=== PATIENT | female | born 1960 | race Caucasian/White ===

== ENCOUNTER 2024-12-03 10:43 | Emergency (ER) | payer BC, SELFPAY ==
--- NOTE | ~2024-12-03 | CT_ITS ---
Exam: CT abdomen and pelvis with contrast Clinical History: [Lower abdominal pain. Diarrhea. ] Comparison: [ None] Technique: Multiple axial CT images of the abdomen and pelvis were obtained with IV contrast. Sagittal and coronal reformatted images were obtained. FINDINGS: Lung bases: [Calcified granuloma in the right middle lobe. ] Liver: [ Minimal intrahepatic biliary duct dilatation presumably due to a previous cholecystectomy.] Indeterminant 1.7 cm low-density mass in the posterior segment of the right lobe of the liver. Gallbladder: Surgically absent. Common bile duct: [ Normal caliber.] [ No stones.] Spleen: [ Within normal limits.] Calcified granulomas in the spleen. Pancreas: [ No mass. No pancreatic fluid collection.] Adrenals: [ No masses.] Kidneys: [ No masses. No hydronephrosis.][ ] Lymph nodes: [ No adenopathy in the abdomen or pelvis.] Stomach, small bowel and colon: Large bowel is primarily fluid-filled with air- fluid levels. Thickening of the riojas of the rectum. Peritoneum cavity: [ No mesenteric fat stranding or fluid.] Bladder: [ Unremarkable.] Osseous structures: [ No acute fracture or destructive lesion.] [ Multilevel degenerative change in the visualized spine.] Abdominal aorta: [ No aneurysm.] Additional findings: [ None of significance.] IMPRESSION: 1. Thickening of the riojas of the rectum. Differential includes incomplete bowel wall distention, proctitis or mass. 2. Large bowel is primarily fluid-filled with air-fluid levels. The finding is nonspecific but may be due to an ileus or developing obstruction. Follow-up is recommended. 3. Indeterminant 1.7 cm low-density mass in the posterior segment of the right lobe of the liver. A liver mass CT or MRI is recommended. Reviewed, dictated and finalized at location Q. IMPRESSION: 1. Thickening of the riojas of the rectum. Differential includes incomplete pedro luis l wall distention, proctitis or mass. 2. Large bowel is primarily fluid-filled with air-fluid levels. The finding is nonspecific but may be due to an ileus or developing obstruction. Follow-up is recommended. 3. Indeterminant 1.7 cm low-density mass in the posterior segment of the right lobe of the liver. A liver mass CT or MRI is recommended.
[2024-12-03 10:49] VITALS: BP 134/62; PULSE 96; RESP 16; TEMP 36.8; O2SAT 100
--- OUTSIDE RECORDS SUMMARY | 2024-12-03 11:27 | XMS_ITS | Clinical Summary ---
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 Role Phone Unavailable Primary Care Provider Unavailabl e Allergies Active Allergy Reactions Criticality Noted Date Comments Sulfa Hives Medium 04/13/2023 Medications desvenlafaxine ER (PRISTIQ) 100 mg 24 hr tablet Take 1 tablet (100 mg total) by mouth daily 3 Active desvenlafaxine ER 50 mg 24 hr tablet Take 1 tablet (50 mg total) by mouth daily 3 Active traZODone (DESYREL) 100 mg tablet Take 1 tablet (100 mg total) by mouth nightly as needed for sleep 3 Active clonazePAM (KlonoPIN) 0.5 mg tablet Take 1 tablet by mouth twice a day as needed severe anxiety....may make drowsy 3 Active atorvastatin (LIPITOR) 40 mg tablet Take 1 tablet (40 mg total) by mouth daily 90 tablet 3 4 Active lisinopriL (PRINIVIL,ZESTR IL) 5 mg tablet TAKE 1 TABLET(5 MG) BY MOUTH DAILY 90 tablet 1 4 Active montelukast (SINGULAIR) 10 mg tablet TAKE 1 TABLET(10 MG) BY MOUTH EVERY NIGHT 90 tablet 1 4 Active semaglutide (RYBELSUS) 3 mg tablet Take 1 tablet (3 mg total) by mouth otm consultant before breakfast 30 tablet 4 Active metFORMIN XR (GLUCOPHAGE XR) 750 mg 24 hr tablet Take 1 tablet (750 mg total) by mouth 2 (two) times a day 180 tablet 1 4 Active metFORMIN (GLUCOPHAGE) 500 mg tablet TAKE 1 TABLET(500 MG) BY MOUTH DAILY WITH BREAKFAST 100 tablet 5 Active albuterol HFA (PROVENTIL HFA,VENTOLIN HFA,PROAIR HFA) 90 mcg/actuation inhaler INHALE 2 PUFFS BY MOUTH EVERY 4 HOURS NEEDED FOR WHEEZING 25.5 g 5 Active levothyroxine (SYNTHROID) 25 mcg tablet TAKE 1 TABLET(25 MCG) BY MOUTH DAILY 100 tablet 5 Active cloNIDine (CATAPRES) 0.2 mg tablet TAKE 1 TABLET(0.2 MG) BY MOUTH TWICE DAILY 180 tablet 5 Active Active Problems Problem Noted Date Diagnosed Date Mild intermittent asthma without complication Seasonal allergic rhinitis due to pollen 024 Acquired hypothyroidism 02/20/2024 Assessment & Plan (02/20/2024 10:06 AM [employer]): Continue levothyroxine 25mcg. Euthyroid. F/u 6 months Annual physical exam 11/20/2023 Assessment & Plan (11/20/2023 10:28 AM CDT): -Recommended: Healthy diet. Avoiding junk food/fast food. -30 minutes of exercise most days of the week. Increase to 45 minutes for weight loss. Health Maintenance reviewed - does not wish to have colonoscopy. -Influenza vaccine every year Recommend: - Topic Date Due Pneumococcal vaccine <65 (1 of 2 - PCV) Never done DTaP/Tdap/Td Vaccine (1 - Tdap) Never done -F/u in 1 year for Annual PE or sooner if needed Mixed hyperlipidemia 04/13/2023 Assessment & Plan (02/20/2024 10:01 AM [employer]): Lipid abnormalities are stable. Pharmacotherapy as ordered. Continue atorvastatin Lipids will be reassessed in 6 months. Assessment & Plan (11/20/2023 10:29 AM CDT): Lipid abnormalities are stable, reviewed previous lipid levels in [facility]. Continue statin therapy. Lipitor (atorvastatin) Reviewed lipid panel today. Pt voiced understanding of current medication regimen. Assessment & Plan (04/13/2023 11:01 AM [employer]): Lipid abnormalities are stable, reviewed previous lipid levels in [facility]. Pharmacotherapy as ordered. Order for lipid panel was given today to be obtained. Pt voiced understanding of lab drawn and continuation of current medication regimen. Controlled type 2 diabetes elma bettencourt without complication, without long-term current use of insulin 04/13/2023 Assessment & Plan (02/20/2024 10:02 AM [employer]): Check A1c today. Will try PA for rybelsus. Continue metformin F/u 6 months Assessment & Plan (11/20/2023 10:32 AM CDT): Having some side effects from metformin especially with increased dose of 750 mg. A1c is 6 on the metformin. We are going to add Ozempic 0.25 mg weekly. I discussed starting dose and titrating dose .5 mg weekly. Sample given in office of the 0.25 mg with teach back method given with dummy pen. Discussed possible side effects. Will have her return in 3 months for recheck Assessment & Plan (04/13/2023 11:02 AM [employer]ING): This is a chronic condition which is stable Is at goal for her age and health condition at less than [7,8] % Personally reviewed most recent A1c - No results found for: HGBA1C Medication- continue metformin Monitor blood sugar 1 times a day. Encouraged annual eye exam. Urine microalbumin/creatinine ratio - ordered today Is treated with MARC/ARB Yes Personally reviewed CMP GFR- No results found for: EGFR, @lastegfr@ Kidney function- Not Available Labs ordered today Hypertension associated with diabetes 04/13/2023 Assessment & Plan (02/20/2024 10:02 AM [employer]): Stable/ Improved. Blood pressure is adequately controlled on lisinopril (Prinivil) and clonidine . We will not make any medication changes today. Will have her follow-up in 6 months for continued monitoring and management Assessment & Plan (11/20/2023 10:30 AM CDT): Stable/ Improved. Blood pressure is adequately controlled on lisinopril (Prinivil) and clonidine . We will not make any medication changes today. Will have her follow-up in 6 months for continued monitoring and management Assessment & Plan (04/13/2023 11:02 AM [employer]): Stable/ Improved. Blood pressure is adequately controlled on current medication. We will not make any medication changes today. Will have her follow-up in 6 months for continued monitoring and management Moderate episode of recurrent major depressive d isorder 04/13/2023 Assessment & Plan (02/20/2024 10:04 AM [employer]): Continue albuterol prn. Have increased symptoms. With allergic rhinitis. Previous [employer]OR gave her IM steroids in office which worked for her, so we can try this again. 60mg IM depo medrol given in office. Follow with medrol dose maria g. Continue otc allergy medications. Assessment & Plan (04/13/2023 11:02 AM [employer]): Stable. Managed by psychiatry Anxiety 04/13/2023 Colonoscopy refused 04/13/2023 Immunizations Immunization Administration Dates Next Due Influenza, Trivalent, Cell Culture-based MDCK, Preservative Free, Antibiotic Free, Intramuscular 11/22/2023 Influenza, Unspecified 11/20/2023(Deferr ed: Patient Refused),04/13/2023(Deferred: Patient Refused),12/04/2022,03/06/2022(Deferre d: Patient Refused) Medical History Medical History Date Comments Depression Allergic Hypertension Family History Relation Name Status Comments Brother 1 Alive Brother 2 Alive Brother 3 Alive Father Mother Alive Sister Alive Social History Tobacco Use Types Packs/Day Years Used Date Smoking Tobacco: Never Smokeless Tobacco: Never Tobacco Cessation:Counseling Given: Not Answered PHQ-2 Answer Date Recorded PHQ-2 Total Score (If total score is 3 or more points, staff should administer the PHQ-9) 0 11/20/2023 Comments Unknown Sex and Gender Information Value Date Recorded Sex Assigned at Not on file Legal Sex Female 2:35 PM [employer] Gender Identity Not on file Sexual Orientation Not on file Obstetrics History Last Filed Vital Signs Vital Sign Reading Time Taken Comments Blood Pressure 108/72 02/20/2024 9:36 AM [employer] Pulse 81 02/20/2024 9:36 AM [employer] Temperature 36.6 C (97.9 F) 02/20/2024 9:36 AM [employer] Respiratory Rate 16 02/20/2024 9:36 AM [employer]ING Oxygen Saturation 98% 02/20/2024 9:36 AM [employer] Inhaled Oxygen Concentration - - Weight 77.8 kg (171 lb 8 oz) 02/20/2024 9:36 AM [employer] Height 160 cm (5' 3) 02/20/2024 9:36 AM [employer] Body Mass Index 30.38 02/20/2024 9:36 AM [employer]ING Plan of Treatment Health Maintenance Due Date Last Done Comments Breast Cancer Screening-Mammogram 1962 Cervical Cancer Screening 1962 Colon Cancer Screening-Colonoscopy 1962 Hepatitis C Screening 1962 Foot Exam 1962 DTaP/Tdap/Td Vaccine (1 - Tdap) 1973 Hepatitis B Screening 01/26/1980 Pneumococcal vaccine <65 (1 of 2 - PCV) 1981 Zoster Vaccine (1 of 2) 01/26/2012 Hemoglobin A1C 08/20/2024 02/20/2024, 10/17/2023 Dilated Eye Exam 09/19/2024 09/20/2023 Albumin Creatinine Ratio, Urine 10/16/2024 Lipid Panel 10/16/2024 10/17/2023 eGFR 10/16/2024 10/17/2023 Influenza Vaccine (#1) 2024 11/22/2023, 2022 Depression Screening 11/19/2024 11/20/2023, 04/13/19 Regular Well Visit/Exam 18-64 11/19/2024 11/20/2023 Procedures Procedure Name Priority Date/Time Associated Diagnosis Comments POCT HEMOGLOBIN A1C Routine 02/20/2024 1 0:28 AM [employer] Controlled type 2 diabetes mellitus without complication, without long-term current use of insulin (HCC) EGFR Routine 10/17/2023 8:20 AM CDT Hypertension associated with diabetes (HCC) LIPID PANEL Routine 10/17/2023 8:20 AM CDT Mixed hyperlipidemia ALBUMIN CREATININE RATIO, URINE Routine 10/17/2023 8:20 AM CDT Controlled type 2 diabetes mellitus without complication, without long-term current use of insulin (HCC) from Last 3 Months or Most Recently Relevant to Health Maintenance Results * POCT hemoglobin A1c (02/20/2024 10:28 AM [employer]) Hemoglobin A1C, POC 6.1 4.0 - 5.6 % Blood 02/20/2024 10:2 8 AM [employer] us Fela Orozco NP POINT OF CARE TEST ORDERABLES Final Result * eGFR (10/17/2023 8:20 AM CDT) eGFR 77 >=60 mL/min/1. 73 m2 Comment: Interpretive Data Reference Interval Normal >/= 90 mL/min/1.73m2 Mildly decreased* 60 - 89 mL/min/1.73m2 Mildly to moderately decreased 45 - 59 mL/min/1.73m2 Moderately to severely decreased 30 - 44 mL/min/1.73m2 Severely decreased 15 - 29 mL/min/1.73m2 Kidney Failure < 15 mL/min/1.73m2 *Relative to young adult level Estimated glomerular filtration rate is determined by the 2020 CKD-EPI equation recommended by the National Kidney Foundation (A Unifying Approach to GFR Estimation: Recommendations of the NKF-ASK Task Force on Reassessing the Inclusion of Race in Diagnosing Kidney Disease, JASN 2020). The CKD-EPI equation should not be used for patients with unstable renal function and has not been validated in children and those over 70. Current interpretive data was last reviewed 2021. Blood 10/17/2023 8:20 AM CDT 10/17/2023 2:58 PM CDT us Fela Orozco NP LAB BLOOD ORDERABLES Final Re sult [facility] [id number] Department [place] [address] * Albumin Creatinine Ratio, Urine (10/17/2023 8:20 AM CDT) Albumin Ur <12.0 mg/L Comment: Interpretive Data No reference range established. Current interpretive data was last revised 2018. Creatinine Ur 134.0 mg/dL [facility] Comment: Interpretive Data No reference range established. Current interpretive data was last revised 2018. Albumin Creatinine Ratio, Ur <9 1 - 29 mg/g [facility] Urine 10/17/2023 8:20 AM CDT 10/17/2023 2:37 PM CDT Fela Orozco NP LAB URINE ORDERABLES Final Re sult Performing Organization Address [facility] de Phone Number [facility] [id number] Department [place] [address] * (ABNORMAL) Lipid panel (10/17/2023 8:20 AM CDT) Cholesterol 140 30 - 199 mg/dL Comment: Interpretive Data Ages < or = 19 years Acceptable: <170 mg/dL Borderline high: 170-199 mg/dL High: >or= 200 mg/dL Ages > or = 20 years Desirable: <200 mg/dL Borderline high: 200-239 mg/dL High: >or= 240 mg/dL Literature References: 1. Expert Panel on Integrated Guidelines for Cardiovascular Health and Risk Reduction in Children and Adolescents. Pediatrics 2011;128:S213 2. NCEP Expert Panel. Circulation 2004;110:227 Current Interpretive Data was last revised on 2017. Triglycerides 209(H) <=149 mg/dL [facility] Comment: Interpretive Data Ages < or = 9 years Acceptable: <75 mg/dL Borderline high: 75-99 mg/dL High: >or= 100 mg/dL Ages 10 to 20 years Acceptable: <90 mg/dL Borderline high: 90-129 mg/dL High: >or= 130 mg/dL Ages > or = 20 years Desirable: <150 mg/dL Borderline high: 150-199 mg/dL High: 200-499 mg/dL Very high: >or= 499 mg/dL Literature References: 1. Expert Panel on Integrated Guidelines for Cardiovascular Health and Risk Reduction in Children and Adolescents. Pediatrics 2011;128:S213 2. NCEP Expert Panel. Circulation 2004;110:227 Current Interpretive Data was last revised on 2017. HDL 38(L) >=40 mg/dL [facility] Comment: Interpretive Data Ages < or = 19 years Acceptable: >45 mg/dL Borderline low: 40-45 mg/dL Low: <40 mg/dL Ages > or = 20 years Desirable: >or= 60 mg/dL Low: <40 mg/dL Literature References: 1. Expert Panel on Integrated Guidelines for Cardiovascular Health and Risk Reduction in Children and Adolescents. Pediatrics 2011;128:S213 2. NCEP Expert Panel. Circulation 2004;110:227 Current Interpretive Data was last revised on 2017. LDL, calculated 60 <=129 mg/dL [facility] Comment: Interpretive Data Ages < or = 19 years Acceptable: <110 mg/dL Borderline high: 110-129 mg/dL High: >or= 130 mg/dL Ages > or = 20 years Optimal: <100 mg/dL Near optimal: 100-129 mg/dL Borderline high: 130-159 mg/dL High: >160 mg/dL Literature References: 1. Expert Panel on Integrated Guidelines for Cardiovascular Health and Risk Reduction in Children and Adolescents. Pediatrics 2011;128:S213 2. NCEP Expert Panel. Circulation 2004;110:227 Current Interpretive Data was last revised on 2017. Non-HDL Cholesterol 102 mg/dL [facility] Comment: Interpretive Data Ages < or = 19 years Acceptable: <120 mg/dL Borderline high: 120-144 mg/dL High: >145 mg/dL Ages > or = 20 years When triglycerides are >200 mg/dL, Non-HDL cholesterol is a secondary target of therapy with treatment goals that are 30 mg/dL greater than the LDL cholesterol target. Literature References: 1. Expert Panel on Integrated Guidelines for Cardiovascular Health and Risk Reduction in Children and Adolescents. Pediatrics 2011;128:S213 2. NCEP Expert Panel. Circulation 2004;110:227 Current Interpretive Data was last revised on 2017. Chol/HDL ratio 4 [facility] Blood 10/17/2023 8:20 AM CDT 10/17/2023 2:37 PM CDT Fela Orozco NP LAB BLOOD ORDERABLES Final Re sult [facility] [id number] Department [place] [address] from Last 3 Months or Most Recently Relevant to Health Maintenance Insurance [place]
--- OUTSIDE RECORDS SUMMARY | 2024-12-03 11:28 | XMS_ITS | Data Portability ---
Author Organization [facility], Main Office Address [address] [place] [address] Assessment Encounter Date Assessment Date Assessment LastModified by Organization Details LastModified Time 07/15/2024 07/15/2024 06/19/2024: A1C 5.9 Not available 07/13/2024 10:41:58 11/13/2024 11/13/2024 06/19/2024: A1C 5.9 Not available 11/13/2024 11:50:56 Plan of Treatment Reminders Order Date Submit Date Provider Last Modified By Organization Details Last Modified Time Details Appointments Follow Up 15 2025 08:45A M Lilian caldera MD Not available Not available Not available Lab vitamin D, 25-hydrox y, total, serum 2024 025 [facility], [address] [facility], [facility], [address], [place], [address], 11/13/2024 11:55:52 noninvasi ve colorecta l cancer DNA + occult blood screening , QL, stool 2024 025 [facility] [address], [address], [place], [address], 11/13/2024 11:55:53 HbA1c (hemoglob in A1c), blood 2024 025 [facility], [address] [facility], [facility], [address], [place], [address], 11/13/2024 11:55:51 microalbu min, urine 2024 025 [facility], [address], [address], [place], [address], 11/13/2024 11:55:50 lipid panel, serum 2024 025 [facility], [address], [address], [place], [address], 11/13/2024 11:55:52 CMP, serum or plasma 2024 025 [facility], [address], [address], [place], [address], 11/13/2024 11:55:52 CBC w/ auto diff 2024 025 [facility], [address], [address], [place], [address], 11/13/2024 11:55:51 TSH + free T4, serum 2024 025 [facility], [address], [address], [place], [address], 11/13/2024 11:55:51 lipid panel, serum 2024 025 [facility], [address], [address], [place], [address], 07/15/2024 11:58:15 CMP, serum or plasma 2024 025 [facility], [address], [address], [place], [address], 07/15/2024 11:58:15 CBC w/ auto diff 2024 025 [facility], [address], [address], [place], [address], 07/15/2024 11:58:16 TSH + free T4, serum 2024 025 [facility], [address], [facility], [address], [place], [address], 07/15/2024 11:58:16 vitamin D, 25-hydrox y, total, serum 2024 025 [facility], [address] [facility], [facility], [address], [place], [address], 07/15/2024 11:58:15 noninvasi ve colorecta l cancer DNA + occult blood screening , QL, stool 2024 025 [place] [address] [facility] (Cologuard Orders Only), [address], [address], [place], [address], 07/23/2024 09:16:35 HbA1c (hemoglob in A1c), blood 2024 025 [facility], [address] [place] [address], [facility], [address], [place], [address], 07/15/2024 11:58:14 microalbu min, urine 2024 025 [facility], [address] [place] [address], [facility], [address], [place], [address], 07/15/2024 11:58:16 lipid panel, serum 2024 025 [facility], [address] [place] [address], [facility], [address], [place], [address], 06/20/2024 09:04:39 CMP, serum or plasma 2024 025 [facility], [facility], [facility], [address], [place], [address], 06/20/2024 09:04:38 CBC w/ auto diff 2024 025 [facility], [address] [facility], [facility], [address], [place], [address], 06/20/2024 09:04:37 TSH + free T4, serum 2024 025 [facility], [address] [facility], [facility], [address], [place], [address], 06/20/2024 09:04:36 vitamin D, 25-hydrox y, total, serum 2024 025 [facility], [address] [facility], [facility], [address], [place], [address], 06/20/2024 09:04:41 HbA1c (hemoglob in A1c), blood 2024 025 [facility], [address] [facility], [facility], [address], [place], [address], 06/20/2024 09:04:40 microalbu min, urine 2024 025 [facility], [address] [facility], [facility], [address], [place], [address], 06/20/2024 09:04:42 Referral obstetric courtney and gynecolog ist referral - Please call patient to schedule an appointme nt. Thank you. 2024 025 Aristides[facility]ub [facility] Nae Tavarez, [address] [facility], [address], [place], [address], Ph [phone] 11/14/2024 15:25:21 diabetic ophthalmo logy referral - Please call patient to schedule an appointme nt. Thank you. 2024 025 CANDY Carlisle, [address], [place], [address], 11/14/2024 10:58:19 podiatris t referral - Please call patient to schedule an appointme nt. Thank you. 2024 025 BERNARDO Troy DPM, [address], [address], [place], [address], 11/14/2024 10:52:20 obstetric courtney and gynecolog ist referral - Please call patient to schedule an appointme nt. Thank you. 2024 025 jus Nae L Daysi, [address], [address], [place], [address], Ph [phone] 10/15/2024 12:41:43 diabetic ophthalmo logy referral - Please call patient to schedule an appointme nt. Thank you. 2024 025 jus Bob Carlisle, [address] [facility], [place], [address], 10/15/2024 12:41:44 podiatris t referral - Please call patient to schedule an appointme nt. Thank you. 2024 025 jus Troy DPM, [address], [address], [place], [address], 10/15/2024 12:41:44 obstetric courtney and gynecolog ist referral - Please call patient to schedule. 2024 025 jus Nae Portilloff, [address], [address], [place], [address], Ph [phone] 10/23/2024 09:28:24 diabetic ophthalmo logy referral - Please call patient to schedule. 2024 025 jus Carlisle, [address] [facility], [place], [address], 10/23/2024 09:28:24 podiatris t referral - Please call patient to schedule. 2024 025 jus Troy DPM, [address], [address], [place], [address], 10/23/2024 09:28:24 Procedures colonosco py screening (PROC) - Please call patient to schedule. 2024 025 [email or web address] Daisy Escobedo MD, [address], [address], [place], [address], 07/24/2024 08:53:46 Surgeries None recorded. Imaging MAMMO, screening , digital, bilateral - Please call patient to schedule. 2024 025 [facility] ([facility]), [address] [place], [address], 04/03/2024 13:18:22 DEXA, axial skeleton - Please call patient to schedule. 2024 025 [facility] ([facility] Sched[facility]), [address] [place], [address], 04/03/2024 13:34:47 Medication Orders benzonata te 100 mg capsule 2024 [facility] #77357, [address], [place], [id number], 11/27/2024 05:02:02 Ozempic 0.25 mg or 0.5 mg (2 mg/3 mL) subcutane ous pen injector 2024 025 [facility] #86320, [address], [place], [id number], 11/13/2024 12:15:30 Airsupra 90 mcg-80 mcg/actua tion HFA aerosol inhaler 2024 025 [facility]26521, [address], [place], [id number], 07/15/2024 11:58:15 Singulair 10 mg tablet 2024 025 [facility] #98036, [address], [place], [id number], 07/15/2024 11:58:15 ipratropi um 0.5 mg-albute rol 3 mg (2.5 mg base)/3 mL nebulizat ion soln 2024 025 [facility] #45260, [address], [place], [id number], 07/15/2024 11:58:15 Symbicort 160 mcg-4.5 mcg/actua tion HFA aerosol inhaler 2024 025 [facility] #15532, [address], [place], [id number], 07/15/2024 11:58:14 Medrol (Rojelio) 4 mg tablets in a dose pack 2024 025 [facility] #45833, [address], [place], [id number], 11/13/2024 11:40:17 azithromy gabriela 250 mg tablet 2024 025 [facility] #62193, [address], [place], [id number], 11/13/2024 11:39:44 Diflucan 150 mg tablet 2024 025 [facility] #84418, [address] [place] [address], [id number], 11/13/2024 11:39:59 Airsupra 90 mcg-80 mcg/actua tion HFA aerosol inhaler 2024 025 [facility] #77241, [address], [place], [id number], 03/18/2024 15:51:30 lisinopri l 10 mg tablet 2024 025 [facility], [address], [place], [id number], 03/18/2024 15:51:28 Mounjaro 2.5 mg/0.5 mL subcutane ous pen injector 2024 025 [facility], [address] [place] [facility], [place], [place], [id number], 07/15/2024 11:12:44 Patient TargetsNo targets recorded. Patient InstructionsNo instructions recorded. Reason for Referral Events Specialist And Gynecologis t Referral for Gynecologic examination Please call patient to schedule. Referring Physician: Lilian Ortiz Internal Medicine, Encounter Date: 03/18/2024 Diabetic Ophthalmology Refer ral for Type 2 diabetes mellitus without complication Please call patient to schedule. Referring Physician: Lilian Ortiz Internal Medicine, Encounter Date: 03/18/2024 [employer] Referral for Type 2 diabetes mellitus without complication Please call patient to schedule. Referring Physician: Lilian Ortiz Internal Medicine, Encounter Date: 03/18/2024 Events Specialist And Gynecologis t Referral for Gynecologic examination Please call patient to schedule an appointment. Thank you. Referring Physician: Lilian Ortiz Internal Medicine, Encounter Date: 07/15/2024 Diabetic Ophthalmology Refer ral for Type 2 diabetes mellitus without complication Please call patient to schedule an appointment. Thank you. Referring Physician: Lilian Ortiz Internal Medicine, Encounter Date: 07/15/2024 [employer] Referral for Type 2 diabetes mellitus without complication Please call patient to schedule an appointment. Thank you. Referring Physician: Lilian Ortiz Internal Medicine, Encounter Date: 07/15/2024 Events Specialist And Gynecologis t Referral for Gynecologic examination Please call patient to schedule an appointment. Thank you. Referring Physician: Fidencio Monique Medicine, Encounter Date: 11/13/2024 Diabetic Ophthalmology Refer ral for Type 2 diabetes mellitus without complication Please call patient to schedule an appointment. Thank you. Referring Physician: Lilian Ortiz, Internal Medicine, Encounter Date: 11/13/2024 [employer] Referral for Type 2 diabetes mellitus without complication Please call patient to schedule an appointment. Thank you. Referring Physician: Lilian Ortiz, Internal Medicine, Encounter Date: 11/13/2024 Results Created Date Observation Date Name Description Value Unit Range Abnormal Flag Note LastModifiedBy Organization Detail LastModifiedTime 04/03/1904/03/2024 scree surendra breas t wilfred, bilat [facility] [address] [address] [phone] Patisharon t Name: CRISTINA ADAN Access ion #: [id number] Sex: F : 1959 7 7 Dictat ed By: Ly Maza Attend ing Physic courtney: WILLIE MALDONADO Orderi ng Physic courtney: WILLIE MALDONADO Exam Date: 2024 11:09 AM Exam Name: MG SCRN BREAST WILFRED BILAT Admitt ing Diagno sis(es ): PROCED URE: SCREEN ING MAMMOG CALE WITH TOMOSY NTHESI S REASON FOR EXAM: screen ing mammog cale COMPAR WEST: None TECHNI QUE: Bilate ral CC and MLO views obtain ed. Images were obtain ed using a Digita l Tomosy nthesi s Unit. Standa rd 2D and 3D Tomosy nthesi s images were review ed. This examin ation was analyz ed using Lunit Insigh t DBT/MM G, an AI softwa re develo ped to enhanc e the effect ivenes s of breast cancer screen ing with mammog kandace. FINDIN GS: BREAST COMPOS ITION: C - The breast s are hetero geneou sly dense, which may obscur e small masses . In the right breast , no asymme trical parenc hymal patter n, chevy ectura l distor tion, pleomo rphic microc alcifi cation s or masses . In the left breast , there is sugges tion of possib le chevy ectura l distor tion in the mid to anteri or slight ly upper breast seen on MLO view. Geogra phic calcif icatio ns are presen t in the outer mid to anteri or left breast seen on CC view. IMPRES AL: Sugges tion of possib le chevy ectura l distor tion in the mid to anteri or upper left breast seen on MLO view. Page 1 [facility] [address] [place] [address] [phone] Patien t Name: CRISTINA ADAN ion #: [id number] Sex: F : 1959 7 7 Dictat ed By: Ly Maza Attend ing Physic courtney: MAE GARCIA [facility] Physic courtney: WILLIE MALDONADO Exam Date: 2024 11:09 AM Exam Name: MG SCRN BREAST WILFRED BILAT Admitt ing Diagno sis(es ): Geogra phic calcif icatio ns in the outer mid to anteri or left breast seen on CC view. RECOMM ENDATI ON: Recomm end left breast diagno stic mammog cale (left spot compre ssion CC, left spot compre ssion MLO, left ML, left magnif icatio n views ) and left breast ultras ound. ASSESS MENT: BIRADS : 0 - Incomp lete - Need additi onal imagin g evalua tion Electr onical ly Signed by: Ly Maza at 2024 12:13: 16 PM Page 2 INTERFACE [facility] (Imaging) [address] [place], [address], 04/03/2024 13:15:42 04/03/19 25 04/03/2024 MAMMO , scree surendra, digit al, bilat eral No observ ation record ed. [facility] [address] [place], [address], 04/03/2024 13:18:22 04/03/19 25 04/03/2024 DEXA, axial skele ton [facility] [address] [place] [address] [phone] Patien t Name: CRISTINA ADAN Access ion #: [id number] Sex: F : 1959 7 7 Dictat ed By: Ly Maza Attend ing Physic courtney: WILLIE MALDONADO Orderi Physic courtney: WILLIE MALDONADO Exam Date: 2024 11:27 AM Exam Name: XR DEXA-H IPS PELVIS SPINE Admitt ing Diagno sis(es ): INDICA TION: screen ing bone densit y. Postmpako rausch al osteop orosis DEXA SCAN: BONE DENSIT Y REPORT : AP SPINE (L1-L4 ) : T Score: -0.9 LEFT HIP TOTAL : T Score: -0.6 RT HIP TOTAL : T Score: -0.6 TOTAL BILAT HIP AVG: T Score: -0.6 IMPRES AL: Normal bone minera lizati on. ------ ------ ------ ------ ------ ------ ------ ------ ----- *FRAX versio n 3.08. Fractu re probab ility calcul ated for an untrea grace patien t. Fractu re probab ility may be lower if the patien t has receiv ed treatm ent. T-scor e: compar west by travis zamudio ion (JALYN) to a young adult popula rosalva frost for sex and ethnic ity (used for postme [facility] al women and men >50 years) and classi fied by WHO criter ia. -1.0: normal <-1.0 to >-2.5: osteop enia -2.5: osteop orosis Page [address] [facility] [address] [place] [address] Patien t Name: CRISTINA ADAN Access ion #: [id number] Sex: F : 1959 7 7 Dictat ed By: Ly Maza Attend ing Physic courtney: MAE GARCIA Orderi ng Physic courtney: WILLIE MALDONADO Exam Date: 2024 11:27 AM Exam Name: XR DEXA-H IPS PELVIS SPINE Admitt ing Diagno sis(es ): -2.5 plus fragil ity fractu re: severe osteop orosis Z-scor e: compar ed by SD to an age, sex, and ethnic ity popula tion (used for premen opausa l women, men <50 years, and childr en instea d of T-scor e WHO criter ia 4) <-2.0: below expect ed range/ low bone densit y for age, and a cause should be sought Electr onical ly Signed by: Ly Maza at 2024 12:32: 35 PM Page 2 INTERFACE [facility] (Imaging) [address] [place], [address], 04/03/2024 13:34:47 04/03/19 25 04/03/2024 imagi ng/di agnos tic resul t No observ ation record ed. [facility] [address] [place], [address], 04/03/2024 13:37:10 04/05/19 25 04/03/2024 scree surendra breas t wilfred, bilat [facility] [address] [facility] [place] [address] Patien t Name: CRISTINA ADAN Access ion #: [id number] Sex: F : 1959 7 7 Dictat ed By: Ly Maza Attend ing Physic courtney: WILLIE MALDONADO ng Physic courtney: JUJUWILLIE BELLAMY Exam Date: 2024 11:09 AM Exam Name: MG BOYD BREAST WILFRED BILAT Admitt ing Diagno sis(es ): ADDEND UM # 1 Compar west is made to mammog cale dated 2020 and 2019 Electr onical ly Signed by: yL Maza at 2024 10:57: 48 AM ORIGIN AL REPORT PROCED URE: SCREEN ING MAMMOG CALE WITH TOMOSY NTHESI S REASON FOR EXAM: screen ing mammog cale COMPAR WEST: None TECHNI QUE: Bilate ral CC and MLO views obtain ed. Images were obtain ed using a Digita l Tomosy nthesi s Unit. Standa rd 2D and 3D Tomosy nthesi s images were review ed. This examin ation was analyz ed using Lunit Insigh t DBT/MM G, an AI softwa re develo ped to enhanc e the effect ivenes s of breast cancer screen ing with mammog kandace. FINDIN GS: BREAST COMPOS ITION: C - The breast s are hetero geneou sly dense, which may obscur e small masses . In the right breast , no asymme trical parenc hymal patter n, chevy ectura l distor tion, pleomo rphic microc alcifi cation s or masses . In the left breast , there is sugges tion of possib le chevy ectura l distor tion in the mid to anteri or slight ly upper breast seen on MLO view. Page 1 [facility] [address] [facility] n [facility], [place] [address] [phone] Patien t Name: CRISTINA ADAN Access ion #: [id number] Sex: F : 1959 7 7 Dictat ed By: Ly Maza Attend ing Physic courntey: MAE GARCIA ng Physic courtney: BLANEWILLIE WILSON Exam Date: 2024 11:09 AM Exam Name: MG SCRN BREAST WILFRED BILAT Admitt ing Diagno sis(es ): Geogra phic calcif icatio ns are presen t in the outer mid to anteri or left breast seen on CC view. IMPRES AL: Sugges tion of possib le chevy ectura l distor tion in the mid to anteri or upper left breast seen on MLO view. Geogra phic calcif icatio ns in the outer mid to anteri or left breast seen on CC view. RECOMM ENDATI ON: Recomm end left breast diagno stic mammog cale (left spot compre ssion CC, left spot compre ssion MLO, left ML, left magnif icatio n views ) and left breast ultras ound. ASSESS MENT: BIRADS : 0 - Incomp lete - Need additi onal imagin g evalua tion Electr onical ly Signed by: Ly Maza at 2024 10:57: 48 AM Page 2 INTERFACE [facility] ([facility]) [address] [place], [address], 04/05/2024 12:00:08 04/05/19 25 04/03/2024 MAMMO , scree surendra, digit al, bilat eral No observ ation record ed. [facility] [address] [place], [address], 04/05/2024 12:04:36 06/20/19 25 06/19/2024 MAMMO , diagn ostic , digit al, unila teral [facility] [address] [place] [address] [phone] Patien t Name: CRISTINA ADAN Access ion #: [id number] Sex: F : 1959 7 4 Dictat ed By: Roger navarro Attend ing Physic courtney: WILLIE MALDONADO ng Physic courtney: WILLIE MALDONADO Exam Date: 2024 08:55 AM Exam Name: MG DIG MAMMO UNILAT DIAG LT Admitt ing Diagno sis(es ): PROCED URE: MG DIG MAMMO UNILAT DIAG LT, US BREAST LIMITE D LT REASON FOR EXAM: Abnorm al screen ing mammog cale. Histor y of prior benign bilate ral breast biopsi es. COMPAR WEST: Screen ing mammog cale dated 2024 and prior screen ing mammog leona dated 2020 and 2019. TECHNI QUE: ML, spot compre ssion cranio caudal and modifi ed mediol ateral obliqu e views, and spot magnif icatio n CC and MLO views of the left breast are obtain ed utiliz ing digita l mammog raphic images obtain ed using a 2D mammog raphic system . Diagno stic left breast ultras ound was perfor med. FINDIN GS: BREAST COMPOS ITION: C - The breast s are hetero geneou sly dense, which may obscur e small masses . There are scatte red calcif icatio ns in the left breast , predom inantl y in the left outer anteri or breast . These have been presen t on prior exams dating back to 2019, withou t signif icant change morpho logy. No suspic ious featur es of the calcif icatio ns are demons trated on the spot magnif icatio n views. No defini te layeri ng of calcif icatio n on the true latera l views. There are scar marker s from prior surgic al biopsi es in the left breast . Areas of asymme try and possib le chevy ectura l distor tion in the left breast may be due to the prior breast surgic al biopsi es. Minima l change when compar ed to previo us exams. Diagno stic left breast ultras ound was perfor med. Ultras ound was perfor med from the 11:00 to 1:00 positi ons as well as in the retroa reolar region and left axilla . Ultras ound demons trated a well-c ircums cribed , hypere choic mass in the 11 o'cloc k positi on of the left breast approx imatel y 3 cm from the Page 1 [facility] [address] [place] [address] Patisharon t Name: CRISTINA ADAN Access ion #: [id number] Sex: F : 1959 7 4 Dictat ed By: Roger navarro Attend ing Physic courtney: KRISTINAFigueroaSIN Xavier, MAE WESTBROOK Orderi ng Physic courtney: MAE WESTBROOK KRISTINATSIN A Exam Date: 2024 08:55 AM Exam Name: MG DIG MAMMO UNILAT DIAG LT Admitt ing Diagno sis(es ): nipple measur ing up to 1.0 x 0.6 x 0.9 cm. No other abnorm ality identi fied in the left breast on ultras ound. IMPRES AL: 1. Calcif icatio ns in the left breast appear stable compar ed to prior exams dating back to 2019 with no suspic ious morpho logy or distri bution of the calcif icatio ns, consis tent with benign etiolo gy. 2. Hypere choic well-c ircums cribed , smooth ly margin ated mass in the 11 o'cloc k positi on approx imatel y 3 cm from the nipple , most consis tent with a benign lipoma . RECOMM ENDATI ON: Recomm end annual mammog cale. ASSESS MENT: BIRADS : 2 - Benign Electr onical ly Signed by: Roger navarro at 2024 08:05: 34 AM Page 2 INTERFACE [facility] (Im[facility]) [address] [place], [address], 06/19/2024 11:07:47 06/20/19 25 06/19/2024 US, evelia juan unila teral [facility] [address] [place] [address] Patisharon t Name: CRISTINA ADAN Access ion #: [id number] Sex: F : 1959 7 4 Dictat ed By: Roger navarro Attend ing Physic courtney: BLANEWILLIE WILSON Orderi ng Physic courtney: MAE WILLIE WESTBROOK Exam Date: 2024 10:09 AM Exam Name: US BREAST LIMITE D LT Admitt ing Diagno sis(es ): PROCED URE: MG DIG MAMMO UNILAT DIAG LT, US BREAST LIMITE D LT REASON FOR EXAM: Abnorm al screen ing mammog cale. Histor y of prior benign bilate ral breast biopsi es. COMPAR WEST: Screen ing mammog cale dated 2024 and prior screen ing mammog leona dated 2020 and 2019. TECHNI QUE: ML, spot compre ssion cranio caudal and modifi ed mediol ateral obliqu e views, and spot magnif icatio n CC and MLO views of the left breast are obtain ed utiliz ing digita l mammog raphic images obtain ed using a 2D mammog raphic system . Diagno stic left breast ultras ound was perfor med. FINDIN GS: BREAST COMPOS ITION: C - The breast s are hetero geneou sly dense, which may obscur e small masses . There are scatte red calcif icatio ns in the left breast , predom inantl y in the left outer anteri or breast . These have been presen t on prior exams dating back to 2019, withou t signif icant change morpho logy. No suspic ious featur es of the calcif icatio ns are demons trated on the spot magnif icatio n views. No defini te layeri ng of calcif icatio n on the true latera l views. There are scar marker s from prior surgic al biopsi es in the left breast . Areas of asymme try and possib le chevy ectura l distor tion in the left breast may be due to the prior breast surgic al biopsi es. Minima l change when compar ed to previo us exams. Diagno stic left breast ultras ound was perfor med. Ultras ound was perfor med from the 11:00 to 1:00 positi ons as well as in the retroa reolar region and left axilla . Ultras ound demons trated a well-c ircums cribed , hypere choic mass in the 11 o'cloc k positi on of the left breast approx imatel y 3 cm from the Page 1 [facility] [address] [place] [address] Patien t Name: CRISTINA ADAN Access ion #: [id number] Sex: F : 1959 7 4 Dictat ed By: Roger navarro Attend ing Physic courtney: MAE GARCIA Physic courtney: WILLIE MALDONADO Exam Date: 2024 10:09 AM Exam Name: US BREAST LIMITE D LT Admitt ing Diagno sis(es ): nipple measur ing up to 1.0 x 0.6 x 0.9 cm. No other abnorm ality identi fied in the left breast on ultras ound. IMPRES AL: 1. Calcif icatio ns in the left breast appear stable compar ed to prior exams dating back to 2019 with no suspic ious morpho logy or distri bution of the calcif icatio ns, consis tent with benign etiolo gy. 2. Hypere choic well-c ircums cribed , smooth ly margin ated mass in the 11 o'cloc k positi on approx imatel y 3 cm from the nipple , most consis tent with a benign lipoma . RECOMM ENDATI ON: Recomm end annual mammog cale. ASSESS MENT: BIRADS : 2 - Benign Electr onical ly Signed by: Roger navarro at 2024 08:05: 34 AM Page 2 INTERFACE [facility] (Imaging) [address] [place], [address], 06/19/2024 11:07:51 06/20/19 25 06/19/2024 imagi ng/di agnos tic resul t No observ ation record ed. [facility] [address] [place], [address], 06/19/2024 11:10:59 06/20/19 25 06/19/2024 MAMMO , scree surendra, digit al, bilat eral No observ ation record ed. BERNARDO [facility] [address] [place], [address], 06/19/2024 11:15:46 Result Notes Documentation Provider Name and Address Organization Details Recorded Time Dexa, Axial Skeleton : [facility] [address] [place] [address] Patient Name: LACEYCRISTINA Sex: F : 1960 Dictated By: Jorge Luis Maza Attending Physician: LILIAN ORTIZ Ordering Physician: LILIAN ORTIZ Exam Date: 04/03/2024 11:27 AM Exam Name: XR DEXA-HIPS PELVIS SPINE Admitting Diagnosis(es): INDICATION: screening bone density. Postmenopausal osteoporosis DEXA SCAN: BONE DENSITY REPORT: AP SPINE (L1-L4) : T Score: -0.9 LEFT HIP TOTAL : T Score: -0.6 RT HIP TOTAL : T Score: -0.6 TOTAL BILAT HIP AVG: T Score: -0.6 IMPRESSION: Normal bone mineralization. - *FRAX version 3.08. Fracture probability calculated for an untreated patient. Fracture probability may be lower if the patient has received treatment. T-score: comparison by standard deviation (SD) to a young adult population, matched for sex and ethnicity (used for postmenopausal women and men >50 years) and classified by WHO criteria. -1.0: normal <-1.0 to >-2.5: osteopenia -2.5: osteoporosis Page 1 [facility] [address] [place] [address] Patient Name: CRISTINA GRANGER Sex: F : 1960 Dictated By: Jorge Luis Maza Attending Physician: EDISON MEAD Ordering Physician: LILIAN ORTIZ Exam Date: 04/03/2024 11:27 AM Exam Name: XR DEXA-HIPS PELVIS SPINE Admitting Diagnosis(es): -2.5 plus fragility fracture: severe osteoporosis Z-score: compared by SD to an age, sex, and ethnicity population (used for premenopausal women, men <50 years, and children instead of T-score WHO criteria 4) <-2.0: below expected range/low bone density for age, and a cause should be sought Page 2 Not Available [facility] 04/03/2024 13:34:47 Mammo, Diagnostic, Digital, Unilateral : [place] [address] Patient Name: CRISTINA GRANGER Sex: F : 1960 Dictated By: Jad Trinidad Attending Physician: LILIAN ORTIZ Ordering Physician: LILIAN ORTIZ Exam Date: 06/19/2024 08:55 AM Exam Name: MG DIG MAMMO UNILAT DIAG LT Admitting Diagnosis(es): PROCEDURE: MG DIG MAMMO UNILAT DIAG LT, US BREAST LIMITED LT REASON FOR EXAM: Abnormal screening mammogram. History of prior benign bilateral breast biopsies. COMPARISON: Screening mammogram dated 04/03/2024 and prior screening mammograms dated 01/26/2021 and 01/22/2020. TECHNIQUE: ML, spot compression craniocaudal and modified mediolateral oblique views, and spot magnification CC and MLO views of the left breast are obtained utilizing digital mammographic images obtained using a 2D mammographic system. Diagnostic left breast ultrasound was performed. FINDINGS: BREAST COMPOSITION: C - The breasts are heterogeneously dense, which may obscure small masses. There are scattered calcifications in the left breast, predominantly in the left outer anterior breast. These have been present on prior exams dating back to 01/22/2020, without significant change morphology. No suspicious features of the calcifications are demonstrated on the spot magnification views. No definite layering of calcification on the true lateral views. There are scar markers from prior surgical biopsies in the left breast. Areas of asymmetry and possible architectural distortion in the left breast may be due to the prior breast surgical biopsies. Minimal change when compared to previous exams. Diagnostic left breast ultrasound was performed. Ultrasound was performed from the 11:00 to 1:00 positions as well as in the retroareolar region and left axilla. Ultrasound demonstrated a well-circumscribed, hyperechoic mass in the 11 o'clock position of the left breast approximately 3 cm from the Page 1 [facility] [address] [place] [id number] Patient Name: CRISTINA GRANGER Sex: F : 1960 Dictated By: Jad Trinidad Attending Physician: EDISON MEAD Ordering Physician: LILIAN ORTIZ Exam Date: 06/19/2024 08:55 AM Exam Name: MG DIG MAMMO UNILAT DIAG LT Admitting Diagnosis(es): nipple measuring up to 1.0 x 0.6 x 0.9 cm. No other abnormality identified in the left breast on ultrasound. IMPRESSION: 1. Calcifications in the left breast appear stable compared to prior exams dating back to 2019 with no suspicious morphology or distribution of the calcifications, consistent with benign etiology. 2. Hyperechoic well-circumscribed, smoothly marginated mass in the 11 o'clock position approximately 3 cm from the nipple, most consistent with a benign lipoma. RECOMMENDATION: Recommend annual mammogram. ASSESSMENT: BIRADS: 2 - Benign Page 2 Not Available [facility] 06/19/2024 11:07:47 Problems Name Problem SNOMED Code Status Onset Date Resolution Date Notes Provider Name and Address Organization Details Recorded Time Type 2 diabetes mellitus without complication 585009870 Active 2024 Lilian caldera MD [address] [facility], [facility] [address], [place], [address] [place] [facility] [employer] 15:17:11 Hyperlipidemia 59134707 Active 2024 Lilian caldera MD [address], [place], [address], [place] [facility] [employer] 5 15:17:46 Hypothyroidism 56973802 Active 2024 Lilian caldera MD [address], [place], [address], [place] [facility] [employer] 5 15:18:04 Mixed anxiety and depressive disorder 319127951 Active 2024 Lilian caldera MD [address], [place], [address], [place] [facility] [employer] 5 15:18:19 Asthma 052387035 Active 2024 Lilian caldera MD [address], [place], [address], [place] [facility] [employer] 5 15:20:14 Essential hypertension 02298604 Active 2024 Lilian caldera MD [address], [place], [address], [place] [facility] [employer] 5 15:22:03 Mammography abnormal 017787964 Active 2024 Lilian caldera MD [address], [place], [address], [place] [facility] 5 17:04:24 Pain in right lower limb 334954498 Active 2024 CLIFFORD Almeida null, [place] [facility] 5 14:59:37 Acute asthma 619744128 Active 2024 Lilian caldera MD [address], [place], [address], [place] [facility] 5 11:47:55 Diabetes mellitus 95454075 Active 2024 CLIFFORD Almeida, [facility] 5 10:39:36 Acute cough Active 2024 CLIFFORD Almeida, [facility] 5 14:25:32 Wheezing 44386331 Active 2024 CLIFFORD Almeida, [facility] 5 14:25:38 Diarrhea 92770484 Active 2024 CLIFFORD Almeida, [facility] 14:25:19 Problem Notes None recorded. Procedures Surgical History Date Name Laterality Status Provider Name and Address Organization Details Recorded Time Cholecystectomy completed CLIFFORD Dias [facility] 03/18/2024 15:08:36 Cyst Removal completed Patti Serrano MA [facility] 07/15/2024 11:13:46 Imaging Results None recorded. Procedure Notes None recorded. Medical Equipment None Reported. Allergies Allergen ID Allergen Name Allergen Category Reaction Reaction Severity Criticality Documentation Date Start Date Code Code System Note Provider Name and Address Organization Details Recorded Time 91038 Substance with sulfonami de structure and antibacte rial mechanism of action (substanc e) medicatio n rash Not available Not available 03/18/2024 28535 8003 [facility] Medications Name Sig Start Date Stop Date Status Note LastModified by Organization Details LastModified Time atorvastati n 40 mg tablet TAKE 1 TABLET BY MOUTH EVERY DAY active Not Available Not Available No t Available metformin 500 mg tablet TAKE 1 TABLET BY MOUTH TWICE DAILY 11/13 completed Not Available Not Available Not Available ipratropium 0.5 mg-albutero l 3 mg (2.5 mg base)/3 mL nebulizatio n soln USE 3 ML VIA NEBULIZER THREE TIMES DAILY NEEDED active Not Available Not Available No t Available azithromyci n 250 mg tablet TAKE 2 TABLETS (500 MG) BY ORAL ROUTE ONCE DAILY FOR 1 DAY THEN 1 TABLET (250 MG) BY ORAL ROUTE ONCE DAILY FOR 4 DAYS 11/13 completed Not Available Not Available Not Available fluconazole 150 mg tablet TAKE 1 TABLET BY MOUTH FOR 1 DAY 11/13 completed Not Available Not Available Not Available clonazepam 0.5 mg tablet TAKE ONE TABLET BY MOUTH TWICE DAILY FOR ANXIETY. MAY CAUSE DROWSINES S active Not Available Not Available No t Available temazepam 7.5 mg capsule TAKE 1 TO 2 CAPSULES BY MOUTH AT BEDTIME NEEDED FOR SLEEP active Not Available Not Available No t Available levothyroxi ne 25 mcg tablet Take 1 tablet every day by oral route for 90 days. active Not Available Not Available No t Available clonidine HCl 0.2 mg tablet TAKE 1 TABLET BY MOUTH TWICE DAILY active Not Available Not Available No t Available trazodone 100 mg tablet TAKE 1 TO 2 TABLETS BY MOUTH EVERY NIGHT NEEDED FOR SLEEP active Not Available Not Available No t Available dicyclomine 20 mg tablet TAKE 1 TABLET BY MOUTH TWICE DAILY NEEDED active Not Available Not Available No t Available benzonatate 100 mg capsule Take 1 capsule 3 times a day by oral route as needed for 7 days. 11/27 completed Not Available Not Available Not Available lisinopril 10 mg tablet TAKE 1 TABLET BY MOUTH EVERY DAY active Not Available Not Available No t Available montelukast 10 mg tablet TAKE 1 TABLET BY MOUTH EVERY DAY 2024 active Not Available Not Available Not Avai lable lisinopril 5 mg tablet Take 1 tablet every day by oral route for 90 days. 03/18 completed Not Available Not Available Not Available methylpredn isolone 4 mg tablets in a dose pack FOLLOW PACKAGE DIRECTION S 11/13 completed Not Available Not Available Not Available albuterol sulfate HFA 90 mcg/actuati on aerosol inhaler INHALE 2 PUFFS BY MOUTH EVERY 4 HOURS NEEDED FOR WHEEZING active Not Available Not Available No t Available metformin ER 750 mg tablet,exte nded release 24 hr 03/18 completed Not Available Not Available Not Available Symbicort 160 mcg-4.5 mcg/actuati on HFA aerosol inhaler INHALE 2 PUFFS BY MOUTH TWICE DAILY active Not Available Not Available No t Available desvenlafax ine succinate ER 50 mg tablet,exte nded release 24 hr TAKE 1 TABLET BY MOUTH DAILY 05/12 /2025 completed Not Available Not Available Not Available desvenlafax ine succinate ER 100 mg tablet,exte nded release 24 hr TAKE 1 TABLET BY MOUTH DAILY active Not Available Not Available No t Available desvenlafax ine succinate ER 25 mg tablet,exte nded release 24 hr TAKE 1 TABLET BY MOUTH DAILY active Not Available Not Available No t Available Rybelsus 3 mg tablet TAKE 1 TABLET BY MOUTH DAILY BEFORE BREAKFAST 03/18 completed Not Available Not Available Not Available Mounjaro 2.5 mg/0.5 mL subcutaneou s pen injector ADMINISTE R 2.5 MG UNDER THE SKIN EVERY WEEK 07/15 completed Not Available Not Available Not Available Ozempic 0.25 mg or 0.5 mg (2 mg/3 mL) subcutaneou s pen injector INJECT 0.5 MG UNDER THE SKIN ONCE A WEEK active Not Available Not Available No t Available Airsupra 90 mcg-80 mcg/actuati on HFA aerosol inhaler INHALE 2 PUFFS BY MOUTH FOUR TIMES DAILY NEEDED active Not Available Not Available No t Available Vitals Date Recorded Body weight Body mass index (BMI) Body height Body temperature Heart rate Systolic And Diastolic Provider Name and Address Organization Details Last Updated DateTime 5 18052.3 g 30.3 kg/m2 160.02 cm 97.7 [degF] 72 /min 156/94 mm[Hg] CLIFFORD Almeida [facility] [employer] 5 15:12:04 Date Recorded Body height Body mass index (BMI) Body weight Body temperature Heart rate Oxygen saturation Oxygen saturation in Arterial blood by Pulse oximetry Pain severity - 0-10 verbal numeric rating [Score] - Reported Systolic And Diastolic Provider Name and Address Organization Details Last Updated DateTime 5 160.02 cm 29.1 kg/m2 08224.1 5 g 97.7 [degF] 71 /min 99 % 99 % 0 128/70 mm[Hg] Patti Serrano MA [place] [employer] [facility] [employer] 5 11:10:06 Date Recorded Body height Body mass index (BMI) Body weight Body temperature Pain severity - 0-10 verbal numeric rating [Score] - Reported Heart rate Oxygen saturation Oxygen saturation in Arterial blood by Pulse oximetry Provider Name and Address Organization Details Last Updated DateTime 5 160.02 cm 26.7 kg/m2 97622.4 5 g 97.6 [degF] 0 74 /min 98 % 98 % Patti Serrano MA [facility] [employer] [facility] 11:39:24 Social History Question Answer Notes LastModified by Organizat ion Details LastModified Time Tobacco Smoking Status Never Smoker Shellie MontgomeryCLIFFORD saucedo null, [facility] [employer] [facility] 03/18/2024 15:05:49 Do You Have An Advance Directive? No Information not available 03/18/2024 What Is Your Level Of Caffeine Consumption? Moderate Information not available 03/18/2024 In The 14 Days Before Symptom Onset, Have You Had Close Contact With A Laboratory-confir med COVID-19 While That Case Was Ill? No Information not available 03/18/2024 In The 14 Days Before Symptom Onset, Have You Had Close Contact With A Person Who Is Under Investigation For COVID-19 While That Person Was Ill? No Information not available 03/18/2024 What Type Of Diet Are You Following? REGULAR Information not available 03/18/2024 What Is The Highest Grade Or Level Of School You Have Completed Or The Highest Degree You Have Received? [id number] Information not available 03/18/2024 Have There Been Any Changes To Your Family Or Social Situation? No Information no t available 07/15/2024 What Is The Fluoride Status Of Your Home? Unknown Information not available 03/18/2024 Do You Use Insect Repellent Routinely? No Information not available 07/15/2024 Where Do You Live? [place] Information not available 03/18/2024 Do You Have A Medical Power Of Legal Counsel? No Information not available 03/18/2024 What Was The Date Of Your Most Recent Tobacco Screening? 11/13/2024 Information not available 11/13/2024 Do You Have Any Pets? Yes Information not available 03/18/2024 What Is Your Relationship Status? Information not available 03/18/2024 Do You Use Your Seat Belt Or Car Seat Routinely? Yes Information not available 03/18/2024 Do You Have Smoke And Carbon Monoxide Detectors In Your Home? Yes Information not available 03/18/2024 Are You Passively Exposed To Smoke? No Information no t available 03/18/2024 Are There Any Smokers In Your House? No Information not available 03/18/2024 Do You Use Sunscreen Routinely? No Information not available 07/15/2024 Has Tobacco Cessation Counseling Been Provided? No N/a Information not available 03/18/2024 Have You Recently Traveled Abroad? No Information not available 03/18/2024 Sex: Female Functional Status Question Answer Note LastModified by Organizat ion Details LastModified Time Do you use any illicit or recreational drugs? No Information not available 03/18/2024 Do you or have you ever used any other forms of tobacco or nicotine? No Information not available 03/18/2024 What is your level of alcohol consumption? Occasional Information not available 03/18/2024 Are you currently employed? No Information not available 03/18/2024 What is your exercise level? Moderate Information not available 03/18/2024 Mental Status Question Answer Note LastModified by Organization D etails LastModified Time Do you feel stressed (tense, restless, nervous, or anxious, or unable to sleep at night)? [id number] Information not available 03/18/2024 Family History Relationship Description Onset Age of this Age Resolved Age Notes LastModified by Organization Details LastModified Time Father Myocardial infarction Not available 03/18 15:03:09 Father Heart disease Not available 2024 15:03:25 Mother Hypertensive disorder Not available 2024 15:03:16 Brother Diabetes mellitus Not available 2024 15:03:41 Sister Diabetes mellitus Not available 2024 15:03:41 Unspecified Relation Family history of diabetes mellitus matern al side frivastorres Not available 11/13/2024 11:34:21 Medical History Condition Response NERVE DISEASE N BLINDNESS N RHEUMATIC FEVER N KIDNEY STONES N BLADDER PROBLEMS N MRSA N OTHER # 1 N POLIO N LUNG DISEASE/DISORDER N HISTORY OF DRUG ABUSE N RADIATION / CHEMOTHERAPY N COPD N Other # 2 N BLOOD DISEASES N EAR OR HEARING PROBLEMS N MUMPS N SHINGLES N DEPRESSION (INCLUDING POST ) Y BOWEL PROBLEMS N FAILED BACK SYNDROME N STROKE/TIA N ULCERS N BENIGN PROSTATIC HYPERPLASIA N MEASLES N HYPOTENSION Y MYOCARDIAL INFARCTION N OBESITY N GERD/NAUSEA N ANEURYSM N URINARY/BLADDER/KIDNEY PROBLEMS N CORONARY ARTERY DISEASE (CAD) N Do you have Advance directive? N ADDICTION CONCERNS N Impotence N ENDOMETRIOSIS N USE OF BLOOD THINNERS N SKIN PROBLEMS N GASTROINTESTINAL DISORDER N PERIPHERAL VASCULAR DISEASE N MUSCLE,JOINT OR BONE PROBLEMS N GASTROINTESTINAL BLEEDING N BLOOD CLOTS N ASTHMA Y CATARACTS N Abdominal Pain N ERECTILE DYSFUNCTION N ARTERIAL INSUFFICIENCY N VARICOSITIES N GI PROBLEMS N Low Testosterone N INFERTILITY N AIDS/HIV N CHEMOTHERAPY / RADIATION N LIVER DISEASE N MALE HYPOGONADISM N HYPERTENSION Y Deficiency N TOURETTE'S N ANXIETY DISORDER Y BLOOD TRANSFUSION N ANEMIA/BLOOD DISORDER N CHRONIC EAR INFECTIONS N TUBERCULOSIS N GLAUCOMA N FOOT PROBLEM N DIVERTICULITIS N SLEEP APNEA N CHICKENPOX N ALLERGIES/HAYFEVER N BACK INJECTIONS N INFECTIOUS DISEASE N PROSTATE N HEART ARRHYTHMIA N ESRD N INSOMNIA N HIGH CHOLESTEROL / HYPERLIPIDEMIA Y EYE PROBLEMS N HYPERTHYROIDISM N PVD N EDEMA N CHRONIC PAIN SYNDROME N HYPOTHYROIDISM N CAROTID BLOCKAGE N CONSTIPATION N BACK / NECK PROBLEMS N ATHEROSCLEROSIS N BREAST PROBLEMS N DIALYSIS N POLYCYSTIC OVARIES N ECZEMA N OSTEOPOROSIS N ARTHRITIS N APPENDICITIS N DIABETES, TYPE Y BAD TEETH N VON WILLIBRAND'S DISEASE N ENT N HEARTBURN / REFLUX N GI N AUTISM SPECTRUM DISORDER (ASD) N POST LAMINECTOMY SYNDROME N HEPATITIS / LIVER DISEASE N GOUT N SLEEP DISORDER N ALZHEIMER'S DISEASE N Brain Problems N DEMENTIA N HERPES N SEIZURES/EPILEPSY N HEADACHES/MIGRAINES N VASCULAR DISEASE N PACEMAKER N DIZZINESS N HEART DISEASE/HEART PROBLEMS N KIDNEY DISEASE N MULTIPLE SCLEROSIS N NEUROPSYCHOLOGICAL N CANCER: SPECIFY N CARDIAC ARRHYTHMIA N ATRIAL FIBRILLATION N Gall Stones N PULMONARY EMBOLISM N AUTOIMMUNE DISEASE N Gynecological History Statement/Question Response How many live births 4 Date of Last Colonoscopy Date of Last Mammogram Date of LMP Most Recent Bone Density Date of Last Pap Current Control Method Menopause Obstetrics History GPAL:G 5 P 4 0 1 4 Type Value Multiple Births 0 Full Term 4 Induced 0 Spontaneous 1 Premature 0 Living 4 Ectopics 0 Total 5 Immunizations Vaccine Type Date Status Note Provider Nam e and Address Organization Details Recorded Time influenza, unspecified formulation 12/04/2022 completed CLIFFORD Almeida, [place] [facility] [employer] [facility] 03/18/2024 15:01:57 Influenza, MDCK, trivalent, PF 11/22/2023 completed CLIFFORD Almeida, [place] - [facility] [employer] [facility] 03/18/2024 15:01:58 Past Encounters Encounter ID Performer Location Encounter Start Date Encounter Closed Date Diagnosis/Indication Diagnosis SNOMED-CT Code Diagnosis ICD10 Code Diagnosis IMO Codes Diagnosis Note [id number] Lilian xavier MD [facility] Primary Care [facility] [address] [place] [address] 03/18/2024 14:09:32 03/18/2024 15:58:31 Screening - NAD 676982858 Z13.9 C-scope: Get if not done Mammogram: Get thisDEXA: Get thisPAP: Get this Get yearly flu shotCan do COVID 19 boostersCa n do shingrix vaccineGet RSV vaccineCan do PCV #20Get Tdap if not done RTC in 3 months, do labs, ER if worse, she is agreeable to this plan of care Screening for malignant neoplasm of colon 262564385 Z12.11 Screening for osteoporosis 235417592 Z13.820 Screening mammography 24 256581 Z12.31 Gynecologi c examination 66856713 Z01.419 Type 2 sarah betes mellitus without complication 048914674 E11.9 On metformin 500mg daiyOn Rybelsus 3mg daily, will d/c as she feels that it has not made her lose weightWill start on MounjaroNo MEN2, MCT, thyroid, parathyroi d or pancreatic complaints , no psychiatry complaints , all side effects explained, take with supplement s and hydrateDoe s well, needs to see eye MD and podiatryGe t labs Hyperlipidemia 26087130 E78.5 On atorvastat in 40mg daily, does wellGet labs Hypothyroidism 43550721 E03.9 On levothyrox ine 25mctgs dailyGet labs Mixed anxi ety and depressive disorder 300350597 F41.8 On clonazepam 0.5mg bidOn desvenlafa xine ER 100mg and 50mg dailyOn trazodone 100mg daily as neededSees psychiatri [facility] [place] Asthma 797238689 J45.90 9 On albuterol PRN, will change to airsupraOn singulairD oes well Essential hypertension 03813029 I10 BP elevatedOn clonidine 0.2mg bidOn lisinopril 5mg dialy, will increase to 10mg dailyKeep BP logs, get labs [id number] Lilian xavier MD [facility] Primary Care [facility] [address] [place] [address] 07/15/2024 10:52:56 07/15/2024 11:59:45 Screening - NAD 727539110 Z13.9 C-scope: Get cologuard Mammogram: L breast diagnostic : Neg DEXA: 04/03/2024 :Neg PAP: Get this Get yearly flu shotCan do COVID 19 boostersCa n do shingrix vaccineGet RSV vaccineCan do PCV #20Get Tdap if not done RTC in 3 months, do labs, ER if worse, she is agreeable to this plan of care Screening for malignant neoplasm of colon 625005402 Z12.11 313708 Screening for osteoporosis 828266353 Z13.820 Gynecologi c examination 07181775 Z01.419 Type 2 sarah betes mellitus without complication 330216427 E11.9 On metformin 500mg dailyNot on Rybelsus 3mg dailyOn Ozempic does well No MEN2, MCT, thyroid, parathyroi d or pancreatic complaints , no psychiatry complaints , all side effects explained, take with supplement s and hydrateDoe s well, needs to see eye MD and podiatryGe t labs Hyperlipidemia 81359503 E78.5 On atorvastat in 40mg daily, does wellGet labs Hypothyroidism 93328443 E03.9 On levothyrox ine 25mctgs dailyGet labs Mixed anxi ety and depressive disorder 691775813 F41.8 On clonazepam 0.5mg bidOn desvenlafa xine ER 100mg and 50mg dailyOn trazodone 100mg daily as neededSees psychiatri [facility] [place] Asthma 087584556 J45.90 9 On airsupraOn singulairG et on SymbicortA lso get on MDP and Z-pack and diflucanNo tify if not better, then may need to see pulmonary, is not wanting a referral yetDoes well Essential hypertension 61930979 I10 On clonidine 0.2mg bidOn lisinopril 10mg dailyDoing very well nowGet labs [id number] Lilian xavier MD [facility] [address] [place] [address] 11/13/2024 11:32:35 11/13/2024 12:12:18 Screening - NAD 839721286 Z13.9 C-scope: Get cologuard Mammogram: L breast diagnostic : Neg DEXA: 04/03/2024 :Neg PAP: Get this Get yearly flu shotCan do COVID 19 boostersCa n do shingrix vaccineGet RSV vaccineCan do PCV #20Get Tdap if not done RTC in 4 months, do labs, ER if worse, she is agreeable to this plan of care Screening for malignant neoplasm of colon 168315416 Z12.11 526613 Screening for osteoporosis 545208081 Z13.820 Gynecologi c examination 30876755 Z01.419 Type 2 sarah betes mellitus without complication 216536135 E11.9 On metformin 500mg dailyNot on Rybelsus 3mg dailyOn Ozempic does well No MEN2, MCT, thyroid, parathyroi d or pancreatic complaints , no psychiatry complaints , all side effects explained, take with supplement s and hydrateDoe s well, needs to see eye MD and podiatryGe t labs Hyperlipidemia [id number] E78.5 On atorvastat in 40mg daily, does wellGet labs Hypothyroidism [id number] E03.9 On levothyrox ine 25mctgs dailyGet labs Mixed anxi ety and depressive disorder [id number] F41.8 On clonazepam 0.5mg bidOn desvenlafa xine ER 100mg and 50mg dailyOn trazodone 100mg daily as neededSees psychiatri [facility] Asthma [id number] J45.90 9 On airsupraOn singulairG et on SymbicortA lso get on MDP and Z-pack and diflucanNo tify if not better, then may need to see pulmonary, is not wanting a referral yetDoes well S/p COVID 19 in 10/2024, does well now, does have Essential hypertension [id number] I10 On clonidine 0.2mg bidOn lisinopril 10mg dailyDoing very well nowGet labs Health Concerns Section Related Observation LastModified by Organization Detai ls LastModified Time None Recorded Concern Status LastModified by Organization Details LastModified Time None Recorded Advance Directives Directive N: Payers Insurance Date Sequence Insurance Name Policy Number Policy Huffman Covered Member ID Huffman Member ID Guarantor Name 11/18/2024 1 [facility] ([facility] [id number] Cristina Granger [id number] Cristina Granger Notes Date Note Type Note Provider Name and Address Organization Details Recorded Time 03/18/2024 text/html OV 03/18/2024:Here to establish care Present Hx:HTNHLDHypothyr oidismDMIIDepress ionAsthma Here to discuss above, get labs, needs refills, does well, wants to get on a higher dose of lisinopril, and also change her Reybelsus as it is not helping her weight Lilian Ortiz MD [address], [address], [place], [address], [employer] 04/01/2024 13:53:13 07/15/2024 text/html OV 03/18/2024:Here to establish care Present Hx:HTNHLDHypothyr oidismDMIIDepress ionAsthma Here to discuss above, get labs, needs refills, does well, wants to get on a higher dose of lisinopril, and also change her Reybelsus as it is not helping her weight OV 07/15/2024: Here for her f/u apt, she is c/o cough, non productive and some wheezing, wants to get a refill on her HHNs and her airsupra, no fevers or chills, no chest pain or SOBShe has done her labs Lilian Ortiz MD [address], [address], [place], [address], [employer] 07/16/2024 08:54:52 11/13/2024 text/html OV 03/18/2024:Here to establish care Present Hx:HTNHLDHypothyr oidismDMIIDepress ionAsthma Here to discuss above, get labs, needs refills, does well, wants to get on a higher dose of lisinopril, and also change her Reybelsus as it is not helping her weight OV 07/15/2024: Here for her f/u apt, she is c/o cough, non productive and some wheezing, wants to get a refill on her HHNs and her airsupra, no fevers or chills, no chest pain or SOBShe has done her labs OV 11/13/2024: Here for her f/u apt, she is doing well, had COVID19 as her grand son 'gave it to me' as per her history, did not get tested nor get any medications, now has a persistent coughShe has no new labs, recently lost her Lilian Ortiz MD [address], [facility], [place], [address], [place] [employer] 11/13/2024 13:02:59 OBGyn Episode No OBEpisode recorded.
[2024-12-03 11:52] VITALS: BP 135/72; PULSE 83; RESP 19; O2SAT 98
--- NOTE | 2024-12-03 11:55 | ED_ITS ---
HPI - Nausea/Vomiting/Diarrhea General Chief complaint: Nausea/Vomiting/Diarrhea Stated complaint: sent by PCP for dehydration Time Seen by Provider: 12/03/24 10:44 History of Present Illness HPI Narrative: Patient is a 64-year-old female presents to the ER with a 5 day history of diarrhea. She reports she has been taking Bentyl, Imodium, and Pepto-Bismol at home but her symptoms continue. Patient reports she believes she is dehydrated because her urine output has decreased. She denies any chest pain, recent fevers, urinary burning or urgency. Patient endorses a history of high blood pressure, asthma, thyroid abnormalities, and depression. Related Data Allergies Allergy/AdvReac Type Severity Reaction Status Date / Time Sulfa (Sulfonamide Allergy Hives Verified 12/03/24 10:52 Antibiotics) Review of Systems 2 Review of Systems: All systems reviewed & are unremarkable except as noted in HPI and below Exam 2 Narrative: GENERAL: Well appearing, well-nourished, non-toxic, in no acute distress. HEAD: Normocephalic, atraumatic. NECK: Supple. No adenopathy, no masses. RESPIRATORY: Airway patent, respirations nonlabored. Clear to auscultation bilaterally, no rales, rhonchi, wheezing. CARDIOVASCULAR: Regular rate and rhythm without murmurs, rubs, or gallops. Peripheral pulses 2+ and equal bilaterally. ABDOMINAL: Soft, nontender, nondistended, no hepatosplenomegaly. Normoactive BS. MUSCULOSKELETAL: Moves all extremities. Strength/ROM intact without gross deformities. SKIN: Warm, dry, normal color. No rashes. NEURO: A&O X3. Speech clear. Cranial nerves II-XII intact. No ataxic movements. PSYCHIATRIC: Appropriate mood and affect. Normal interaction. Course Vital Signs Vital signs: Vital Signs Temperature 36.8 C 12/03/24 10:49 Pulse Rate 96 12/03/24 10:49 Respiratory Rate 16 12/03/24 10:49 Blood Pressure 134/62 12/03/24 10:49 Pulse Oximetry 100 12/03/24 10:49 Oxygen Delivery Room Air 12/03/24 10:49 Temperature 36.8 C 12/03/24 10:49 Pulse Rate 74 12/03/24 16:10 Respiratory Rate 15 12/03/24 16:10 Blood Pressure 120/60 12/03/24 16:10 Pulse Oximetry 100 12/03/24 16:10 Oxygen Delivery Room Air 12/03/24 10:49 MDM - Nausea/Vomiting/Diarrhea MDM Narrative Medical decision making narrative: Patient is a 64-year-old female presents to the ER with a 5 day history of diarrhea. She reports she has been taking Bentyl, Imodium, and Pepto-Bismol at home but her symptoms continue. Patient reports she believes she is dehydrated because her urine output has decreased. She reports she has also had some lower back pain, especially in the left flank. Pt denies any chest pain, recent fevers, urinary burning or urgency. She endorses a history of high blood pressure, asthma, thyroid abnormalities, and depression. Labs Ordered: CBC, CMP, UA, COVID/flu/RSV swab, C difficile Imaging Ordered: CT abdomen pelvis Medications Ordered: None necessary Diagnosis: Gastroenteritis, low-density mass in the posterior segment of the right lobe of the liver, diarrhea, hematuria Patient Education/Shared MDM: Upon further discussion, patient reports she has recently been on Ozempic, which may be contributing to her diarrhea and ileus. She also reports she has a history of irritable bowel syndrome. Patient is requesting IV fluids. She will also be given Toradol to treat her back pain. Pt is requesting a dose and prescription for Lomotil. Patient strongly advised to refrain from further Imodium use once she gets home. Results of lab work shared with patient. They endorses improvement of symptoms following medication administration. Patient strongly advised to maintain hydration status upon discharge and follow-up with her PCP as soon as possible. She will be discharged home with a prescription for Lomotil. Strict return precautions provided. Patient verbalized understanding and is in agreement with plan. Vital signs stable at time of discharge. All questions answered. Differential Diagnosis Differential diagnosis: Likely food poisoning, gastroenteritis, clostridium difficile infection and dehydration Lab Data Attestation: I reviewed the patient's lab results. 12/03/24 12:04 12/03/24 12:04 Labs: Lab Results 12/03/24 12/03/24 Range/Units 12:04 13:13 WBC 3.8 L (4.5-10.0) K/mm3 RBC 4.74 (4.2-5.4) M/mm3 Hgb 13.2 (12.0-15.0) g/dL Hct 41.3 (37.0-47.0) % MCV 87.1 (80-100) fl MCH 27.8 (26-34) pg MCHC 32.0 (32-36) g/dl RDW 13.6 (11.5-14.5) % Plt Count 163 (150-375) k/mm3 MPV 9.4 (7.4-10.4) fl Immature Gran % (Auto) 0.3 (0-0.5) % Neut % (Auto) 39.2 L (45.5-73.1) % Lymph % (Auto) 45.6 H (18.3-44.2) % Kings % (Auto) 12.8 H (2.6-8.5) % Eos % (Auto) 1.6 (0-4.4) % Baso % (Auto) 0.5 (0.2-1.2) % Lymph # (Auto) 1.75 (0.9-3.2) K/mm3 Kings # (Auto) 0.5 (0.1-0.6) K/mm3 Eos # (Auto) 0.1 (0-0.3) K/mm3 Baso # (Auto) 0.0 (0.0-0.1) K/mm3 Abs Immat Gran (auto) 0.01 (0.00-0.031) K/mm3 Absolute Neuts (auto) 1.5 (1.3-6.7) K/mm3 Absolute Nucleated RBC 0.000 (0.0-0.012) K/mm3 Nucleated RBC % 0.0 (0.0-0.2) % Sodium 138 (137-145) mmol/L Potassium 4.0 (3.4-5.0) mmol/L Chloride 103 (98-107) mmol/L Carbon Dioxide 27 (22-30) mmol/L Anion Gap 8 (4-12) mmol/L BUN 12 (7-17) mg/dL Creatinine 0.80 (0.7-1.0) mg/dL Estim Creat Clear Calc 53 ml/min Estimated GFR > 60 (59 - ) Glucose 84 (65-110) mg/dL Calcium 9.1 (8.4-10.2) mg/dL Total Bilirubin 0.5 (0.2-1.3) mg/dL AST 58 H (14-36) U/L ALT 98 H (6-35) U/L Alkaline Phosphatase 115 (38-126) U/L Total Protein 7.2 (6.3-8.2) g/dL Albumin 4.3 (3.5-5.1) g/dL Lipase 56 (23-300) U/L Urine Color Yellow (Yellow) Urine Appearance Clear (Clear) Urine pH 5.5 (5.0-9.0) Ur Specific [place] 1.023 (1.001-1.035) Urine Protein Trace (Negative) mg/dL Urine Glucose (UA) Negative (Negative) mg/dL Urine Ketones 1+ H (Negative) mg/dL Ur Blood (Man) 1+ H (Negative) Urine Nitrate Negative (Negative) Urine Bilirubin Negative (Negative) Urine Urobilinogen 1.0 (<2.0) mg/dL Leukocyte Esterase Rfl Negative (Negative) NANCY/UL Urine RBC 11-20 H (0-2) /hpf Urine WBC 0-5 (0-3) /hpf Ur Squamous Epith Cells Occasional (Few) /hpf Urine Bacteria None seen /hpf Urine Casts 3-5 C. difficile (PCR) Negative (NEGATIVE) Influenza A (RT-PCR) Pending Influenza B (RT-PCR) Pending RSV (RT-PCR) Pending SARS-CoV-2 RNA (RT-PCR) Pending Imaging Data Attestation: I personally reviewed and interpreted this imaging study as follows: Radiologist's impression: Impressions Abdomen/Pelvis CT 12/03/24 13:23 IMPRESSION: 1. Thickening of the riojas of the rectum. Differential includes incomplete bowel wall distention, proctitis or mass. 2. Large bowel is primarily fluid-filled with air-fluid levels. The finding is nonspecific but may be due to an ileus or developing obstruction. Follow-up is recommended. 3. Indeterminant 1.7 cm low-density mass in the posterior segment of the right lobe of the liver. A liver mass CT or MRI is recommended. Discharge Plan Discharge Clinical Impression: Gastroenteritis, Hematuria, Liver mass, right lobe, Diarrhea Patient Disposition: Home Condition: Stable Instructions: Antibiotic Form, Clear Liquid Diet (ED), Acute Diarrhea (ED) Additional Instructions: Please return to the ER with any worsening symptoms. Follow-up with primary care provider as soon as possible for further evaluation of the mass on your liver. Take all medications as prescribed, including regularly scheduled medications. Please use Lomotil very sparingly. Remember to drink tons of water. Try to eat a GI friendly diet for the next couple of days. Patient Language: Japanese Prescriptions: New diphenoxylate-atropine [Lomotil] 2.5-0.025 mg tablet 1 tablet PO TID PRN (Reason: diarrhea) Qty: 20 0RF Follow-up/Referrals: Diana,MD Lilian [Primary Care Provider, Unknown]
[2024-12-03 12:16] LABS: Hematocrit 41.3 % (37.0-47.0); Hemoglobin 13.2 g/dL (12.0-15.0); Immature Granulocyte Percent A 0.3 % (0-0.5); Lymphocytes Absolute Auto 1.75 K/mm3 (0.9-3.2); Mean Corpuscular HGB Conc 32.0 g/dl (32-36); Mean Corpuscular Hemoglobin 27.8 pg (26-34); Mean Corpuscular Volume 87.1 fl (80-100); Nucleated Red Blood Cells Absolute Auto 0.000 K/mm3 (0.0-0.012); Nucleated Red Blood Cells Perc 0.0 % (0.0-0.2); Platelet Count Result 163 k/mm3 (150-375); Red Blood Count 4.74 M/mm3 (4.2-5.4); White Blood Count 3.8 K/mm3 (4.5-10.0)
[2024-12-03 12:22] LABS: Add Urine Microscopic? YES; Appearance Urine Clear (Clear); Glucose Urine UA Negative (Negative); Leukocyte Esterase Ur Negative LEU/UL (Negative); Nitrate Urine Negative (Negative); Specific Grav Ur 1.023 (1.001-1.035)
[2024-12-03 12:26] LABS: Alanine Aminotransferase 98 U/L (6-35); Albumin Level 4.3 g/dL (3.5-5.1); Alkaline Phosphatase 115 U/L (38-126); Anion Gap 8 mmol/L (4-12); Aspartate Amino Transferase 58 U/L (14-36); Bilirubin,Total 0.5 mg/dL (0.2-1.3); Blood Urea Nitrogen 12 mg/dL (7-17); Calcium 9.1 mg/dL (8.4-10.2); Carbon Dioxide 27 mmol/L (22-30); Chloride 103 mmol/L (98-107); Estimated CRCL calculation 53 ml/min; Estimated Glomerular Filt Rate > 60; Glucose 84 mg/dL (65-110); Lipase 56 U/L (23-300); Potassium 4.0 mmol/L (3.4-5.0); Sodium 138 mmol/L (137-145); Total Protein 7.2 g/dL (6.3-8.2)
[2024-12-03 13:40] VITALS: BP 109/70; PULSE 83; RESP 19; O2SAT 98
[2024-12-03 14:07] LABS: Toxigenic C. Diff NEGATIVE (NEGATIVE)
[2024-12-03] MEDS: KETOROLAC 15 MG/ML VIAL (*BKC) IV PUSH (14:46)
[2024-12-03] MEDS: SODIUM CHLORIDE 0.9% IV 1,000 ML 999 ML IV CONT (14:47)
[2024-12-03 16:10] VITALS: BP 120/60; PULSE 74; RESP 15; O2SAT 100
[2024-12-03] MEDS: DIPHENOXYLATE/ATROPINE (*CRX) 2.5 MG TABLET 2 TABLET PO (17:21)
[2024-12-03 17:26] VITALS: BP 123/67; PULSE 71; RESP 16; O2SAT 100
[2024-12-03 17:36] LABS: Influenza A QL RT-PCR Negative (Negative); Influenza B QL RT-PCR Negative (Negative); RSV RNA, RT-PCR Negative (Negative); SARS-CoV-2 RNA PCR Negative (Negative)
== END 2024-12-03 17:27 | disposition home or self-care (01) ==
PROVIDERS: Emergency Provider Registered Nurse; PCP Internal Medicine
DX: K52.9 Noninfective gastroenteritis and colitis, unspecified (principal); R31.9 Hematuria, unspecified; R16.0 Hepatomegaly, not elsewhere classified; Z20.822 Contact with and (suspected) exposure to COVID-19; I10 Essential (primary) hypertension; J45.909 Unspecified asthma, uncomplicated
CPT/HCPCS: 36415; 74177; 80053; 81001; 83690; 85025; 87493; 87637; 96361; 96374; 99284; A9270; J1885; J7030; Q9967

== ENCOUNTER 2024-12-04 13:56 | Emergency (ER) | payer BC, SELFPAY ==
--- NOTE | ~2024-12-04 | CT_ITS ---
EXAMINATION: CT abdomen pelvis w con DATE: 12/04/2024 16:20 INDICATION: Worsening pain, diarrhea and bilateral flank pain TECHNIQUE: Computed tomography (CT) of the abdomen and pelvis was performed with 100 mL Omnipaque-350 intravenous contrast. Automated exposure control and iterative reconstruction technique were employed. The dose-length product was 245.38 mGy-cm. COMPARISON: 12/03/2024 FINDINGS: Calcified right middle lobe nodule along with multiple splenic and a few hepatic calcifications, all consistent with old granulomatous disease. Heart size is normal. No pericardial or pleural effusion. Mild focal hepatic steatosis at the ligamentum teres. Subcapsular 1.5 cm low-attenuation likely hemangioma along the posterior margin of the right hepatic lobe which demonstrate peripheral collection of contrast isodense to the vascularity. Common bile duct is mildly dilated to 8 mm without intrahepatic biliary ductal dilation or evident obstructing stone or mass likely related to prior cholecystectomy with surgical clips the gallbladder fossa. Pancreas, bilateral adrenal glands and kidneys are normal. Fluid throughout the colon consistent with reported history of diarrhea. Small bowel and appendix are normal. Decompressed bladder, anteverted uterus and bilateral adnexa are unremarkable. No free intraperitoneal gas or fluid. No pathologically enlarged abdominal or pelvic lymphadenopathy. Mild lumbar and lower thoracic spondylosis. IMPRESSION: 1. Nonspecific diarrhea. No other acute intra-abdominal/pelvic process. Reviewed, dictated and finalized at location A.
--- OUTSIDE RECORDS SUMMARY | 2024-12-04 14:03 | XMS_ITS | Clinical Summary ---
Author Organization [facility] [address] Address [address] [place] [id number] Care Team Providers Care [employer] Faculty Name Role Phone Unavailable Primary Care Provider [...] 1 tablet (3 mg total) by mouth hook puller before breakfast 30 tablet 4 Active metFORMIN [...] 02/20/2024 Assessment & Plan (02/20/2024 10:06 AM EGG PASTEURIZER): Continue levothyroxine 25mcg. Euthyroid. F/u 6 months [...] 04/13/2023 Assessment & Plan (02/20/2024 10:01 AM EGG PASTEURIZER): Lipid abnormalities are stable. Pharmacotherapy as ordered. Continue atorvastatin Lipids will be reassessed in 6 months. Assessment & Plan (11/20/2023 10:29 AM CDT): Lipid abnormalities are stable, reviewed previous lipid levels in [facility]. Continue statin therapy. Lipitor (atorvastatin) Reviewed lipid panel today. Pt voiced understanding of current medication regimen. Assessment & Plan (04/13/2023 11:01 AM EGG PASTEURIZER): Lipid abnormalities are stable, reviewed previous lipid levels in [facility]. Pharmacotherapy as ordered. Order for lipid panel was given today to be obtained. Pt voiced understanding of lab drawn and continuation of current medication regimen. Controlled type 2 diabetes elma bettencourt without complication, without long-term current use of insulin 04/13/2023 Assessment & Plan (02/20/2024 10:02 AM EGG PASTEURIZER): Check A1c today. Will try PA for [...] recheck Assessment & Plan (04/13/2023 11:02 AM EGG PASTEURIZER): This is a chronic condition which is [...] 04/13/2023 Assessment & Plan (02/20/2024 10:02 AM EGG PASTEURIZER): Stable/ Improved. Blood pressure is adequately controlled [...] management Assessment & Plan (04/13/2023 11:02 AM EGG PASTEURIZER): Stable/ Improved. Blood pressure is adequately controlled on current medication. We will not make any medication changes today. Will have her follow-up in 6 months for continued monitoring and management Moderate episode of recurrent major depressive d isorder 04/13/2023 Assessment & Plan (02/20/2024 10:04 AM EGG PASTEURIZER): Continue albuterol prn. Have increased symptoms. With allergic rhinitis. Previous [employer] VICE PRESIDENT gave her IM steroids in office which worked for her, so we can try this again. 60mg IM depo medrol given in office. Follow with medrol dose maria g. Continue otc allergy medications. Assessment & Plan (04/13/2023 11:02 AM EGG PASTEURIZER): Stable. Managed by psychiatry Anxiety 04/13/2023 Colonoscopy [...] on file Legal Sex Female 2:35 PM EGG PASTEURIZER Gender Identity Not on file Sexual Orientation Not on file Obstetrics History Last Filed Vital Signs Vital Sign Reading Time Taken Comments Blood Pressure 108/72 02/20/2024 9:36 AM EGG PASTEURIZER Pulse 81 02/20/2024 9:36 AM EGG PASTEURIZER Temperature 36.6 C (97.9 F) 02/20/2024 9:36 AM EGG PASTEURIZER Respiratory Rate 16 02/20/2024 9:36 AM EGG PASTEURIZER Oxygen Saturation 98% 02/20/2024 9:36 AM EGG PASTEURIZER Inhaled Oxygen Concentration - - Weight 77.8 kg (171 lb 8 oz) 02/20/2024 9:36 AM EGG PASTEURIZER Height 160 cm (5' 3) 02/20/2024 9:36 AM EGG PASTEURIZER Body Mass Index 30.38 02/20/2024 9:36 AM EGG PASTEURIZER Plan of Treatment Health Maintenance Due Date [...] HEMOGLOBIN A1C Routine 02/20/2024 1 0:28 AM EGG PASTEURIZER Controlled type 2 diabetes mellitus without complication, [...] * POCT hemoglobin A1c (02/20/2024 10:28 AM EGG PASTEURIZER) Hemoglobin A1C, POC 6.1 4.0 - 5.6 % Blood 02/20/2024 10:2 8 AM EGG PASTEURIZER us Fela Orozco NP POINT OF CARE [...] BLOOD ORDERABLES Final Re sult [facility] [address] [facility] [place] [address] * Albumin Creatinine Ratio, Urine (10/17/2023 8:20 [...] ORDERABLES Final Re sult Performing Organization Address [facility] de Phone Number CLEVE MAN[facility] [address] [place] [address] * (ABNORMAL) Lipid panel (10/17/2023 8:20 AM [...] BLOOD ORDERABLES Final Re sult CLEVE MANRIQUE [address] [place] [address] from Last 3 Months or Most Recently Relevant to Health Maintenance Insurance [employer] [place]
[2024-12-04 14:14] VITALS: BP 138/60; PULSE 81; RESP 16; TEMP 36.8; O2SAT 99
[2024-12-04] MEDS: ONDANSETRON INJ 4 MG/2 ML VIAL IV PUSH (15:49)
[2024-12-04] MEDS: SODIUM CHLORIDE 0.9% IV 1,000 ML 999 ML IV CONT (15:49)
--- NOTE | 2024-12-04 15:55 | ED_ITS ---
HPI - General Adult General Chief complaint: Unspecified Stated complaint: Sent by PMD for something missed on CT 12/03 Time Seen by Provider: 12/04/24 14:51 Source: patient Mode of arrival: ambulatory Limitations: no limitations History of Present Illness HPI narrative: Patient is a 64 y/o female who presents to the ED with report of diarrhea. Patient reports she has had persistent diarrhea for the last 8 days. Reports multiple episodes of diarrhea intermittently throughout the day. Also reports nausea, intermittent lower back cramping, bilateral flank pain. She was seen in the ED yesterday, tested negative for viral panel, C diff. CT scan at that time showed evidence of ileus versus possible developing obstruction. Patient contacted her primary care doctor today and was referred to return to the ED for repeat evaluation of possible obstruction. Significant abdominal pain. Denies vomiting. Denies rectal bleeding, melena, fevers. Related Data Allergies Allergy/AdvReac Type Severity Reaction Status Date / Time Sulfa (Sulfonamide Allergy Hives Verified 12/04/24 14:19 Antibiotics) Review of Systems 2 Review of Systems: All systems reviewed & are unremarkable except as noted in HPI. All systems reviewed & are unremarkable except as noted in HPI and below Exam 2 Narrative: GENERAL: Well appearing, well-nourished, non-toxic, in no acute distress. HEAD: Normocephalic, atraumatic. RESPIRATORY: Airway patent, respirations nonlabored. Clear to auscultation bilaterally, no rales, rhonchi, wheezing. CARDIOVASCULAR: Regular rate and rhythm without murmurs, rubs, or gallops. ABDOMINAL: Soft, nontender, nondistended. Normoactive BS. No significant CVA tenderness yet MUSCULOSKELETAL: Moves all extremities. No gross deformities. SKIN: Warm, dry, normal color. NEURO: A&O X3. Speech clear. Cranial nerves II-XII grossly intact. Steady gait. No ataxic movements. PSYCHIATRIC: Appropriate mood and affect. Normal interaction. Course Vital Signs Vital signs: Vital Signs Temperature 98.3 F 12/04/24 14:14 Pulse Rate 81 12/04/24 14:14 Respiratory Rate 16 12/04/24 14:14 Blood Pressure 138/60 12/04/24 14:14 Pulse Oximetry 99 12/04/24 14:14 Oxygen Delivery Room Air 12/04/24 14:14 Temperature 98.3 F 12/04/24 14:14 Pulse Rate 84 12/04/24 17:12 Respiratory Rate 16 12/04/24 17:12 Blood Pressure 134/76 12/04/24 17:12 Pulse Oximetry 99 12/04/24 17:12 Oxygen Delivery Room Air 12/04/24 14:14 Medical Decision Making MDM Narrative Medical decision making narrative: Patient presented to ED with ongoing diarrhea, seen in the ED yesterday and CT scan showed ileus versus possible developing obstruction. Vital signs are stable upon arrival today. Patient in no acute distress. Laboratory studies without acute changes from yesterday. Stable electrolytes. Magnesium within normal range. Lactic acid within normal range. Minimal transaminitis, improved from yesterday. UA reviewed from yesterday, showed small amount of RBC, no signs of infection. Repeat CT scan performed today and showing nonspecific diarrhea, otherwise no acute findings. No evidence of ileus or obstruction at this time. Discussed lab and imaging findings, overall reassuring workup with patient. She is feeling improved after fluids. Feel she is safe for discharge home. No indication for admission at this time. Advised patient to stay very well hydrated, will prescribe Zofran and Bentyl for home, discussed strict return precautions. Patient in agreement with plan, feels comfortable going home. Discharged in stable condition. Medical Records Medical records reviewed: Yes I reviewed the external patient's medical records. Vital Signs Vital Signs: Vital Signs Temperature 98.3 F 12/04/24 14:14 Pulse Rate 81 12/04/24 14:14 Respiratory Rate 16 12/04/24 14:14 Blood Pressure 138/60 12/04/24 14:14 Pulse Oximetry 99 12/04/24 14:14 Oxygen Delivery Room Air 12/04/24 14:14 Temperature 98.3 F 12/04/24 14:14 Pulse Rate 84 12/04/24 17:12 Respiratory Rate 16 12/04/24 17:12 Blood Pressure 134/76 12/04/24 17:12 Pulse Oximetry 99 12/04/24 17:12 Oxygen Delivery Room Air 12/04/24 14:14 Lab Data Lab results reviewed: Yes I reviewed the patient's lab results. 12/04/24 15:52 12/04/24 16:13 Labs: Lab Results 12/04/24 12/04/24 Range/Units 15:52 16:13 WBC 3.8 L (4.5-10.0) K/mm3 RBC 4.72 (4.2-5.4) M/mm3 Hgb 13.1 (12.0-15.0) g/dL Hct 40.7 (37.0-47.0) % MCV 86.2 (80-100) fl MCH 27.8 (26-34) pg MCHC 32.2 (32-36) g/dl RDW 13.4 (11.5-14.5) % Plt Count 177 (150-375) k/mm3 MPV 9.2 (7.4-10.4) fl Immature Gran % (Auto) 0.0 (0-0.5) % Neut % (Auto) 35.4 L (45.5-73.1) % Lymph % (Auto) 50.9 H (18.3-44.2) % [place] % (Auto) 11.9 H (2.6-8.5) % Eos % (Auto) 1.3 (0-4.4) % Baso % (Auto) 0.5 (0.2-1.2) % Lymph # (Auto) 1.92 (0.9-3.2) K/mm3 [place] # (Auto) 0.5 (0.1-0.6) K/mm3 Eos # (Auto) 0.1 (0-0.3) K/mm3 Baso # (Auto) 0.0 (0.0-0.1) K/mm3 Abs Immat Gran (auto) 0.00 (0.00-0.031) K/mm3 Absolute Neuts (auto) 1.3 (1.3-6.7) K/mm3 Absolute Nucleated RBC 0.000 (0.0-0.012) K/mm3 Nucleated RBC % 0.0 (0.0-0.2) % Sodium 139 (137-145) mmol/L Potassium 3.8 (3.4-5.0) mmol/L Chloride 104 (98-107) mmol/L Carbon Dioxide 25 (22-30) mmol/L Anion Gap 10 (4-12) mmol/L BUN 10 (7-17) mg/dL Creatinine 0.71 0.80 (0.7-1.0) mg/dL Estim Creat Clear Calc 59 53 ml/min Estimated GFR > 60 > 60 (59 - ) Glucose 89 (65-110) mg/dL Lactic Acid 1.1 (0.7-2.0) mmol/L Calcium 9.3 (8.4-10.2) mg/dL Magnesium 1.8 (1.6-2.3) mg/dL Total Bilirubin 0.5 (0.2-1.3) mg/dL AST 40 H (14-36) U/L ALT 76 H (6-35) U/L Alkaline Phosphatase 93 (38-126) U/L Total Protein 7.4 (6.3-8.2) g/dL Albumin 4.5 (3.5-5.1) g/dL Imaging Data Attestation: I personally reviewed and interpreted this imaging study as follows: Radiologist's impression: ITS Impressions Abdomen/Pelvis CT 12/04/24 16:20 IMPRESSION: 1. Nonspecific diarrhea. No other acute intra-abdominal/pelvic process. Discharge Plan Discharge Clinical Impression: Diarrhea, Nausea Patient Disposition: Home Condition: Stable Instructions: Antibiotic Form, Acute Nausea and Vomiting (ED), Acute Diarrhea (ED) Additional Instructions: Utilize zofran as needed for further nausea. Recommend Tylenol, Bentyl as needed for further abdominal discomfort. Increase fluid intake. Recommend electrolyte rich fluids, gatorade, pedialyte, body armour. Recommend clear liquids or bland diet until symptoms improve, such as bananas, rice, applesauce, toast, or crackers. Follow up with your primary care doctor and/or GI for further evaluation. Return to the ED if you experience worsening or severe symptoms, unable to keep down food or drink, severe pain, fevers, rectal bleeding, vomiting blood, or any other symptoms of concern. Patient Language: Chinese Prescriptions: New ondansetron 4 mg tablet,disintegrating 4 mg PO Q8H PRN (Reason: nausea and vomiting) Qty: 15 0RF dicyclomine 20 mg tablet 20 mg PO TID PRN (Reason: Abdominal Discomfort) Qty: 15 0RF No Action diphenoxylate-atropine [Lomotil] 2.5-0.025 mg tablet 1 tablet PO TID PRN (Reason: diarrhea) Qty: 20 0RF Follow-up/Referrals: Diana,MD Lilian [Primary Care Provider, Unknown] Mark Ramirez MD [Physician, Gastroenterology] Referral Note: GI Time of Disposition: 17:04
[2024-12-04 16:00] LABS: Hematocrit 40.7 % (37.0-47.0); Hemoglobin 13.1 g/dL (12.0-15.0); Immature Granulocyte Percent A 0.0 % (0-0.5); Lymphocytes Absolute Auto 1.92 K/mm3 (0.9-3.2); Mean Corpuscular HGB Conc 32.2 g/dl (32-36); Mean Corpuscular Hemoglobin 27.8 pg (26-34); Mean Corpuscular Volume 86.2 fl (80-100); Nucleated Red Blood Cells Absolute Auto 0.000 K/mm3 (0.0-0.012); Nucleated Red Blood Cells Perc 0.0 % (0.0-0.2); Platelet Count Result 177 k/mm3 (150-375); Red Blood Count 4.72 M/mm3 (4.2-5.4); White Blood Count 3.8 K/mm3 (4.5-10.0)
[2024-12-04 16:10] LABS: Alanine Aminotransferase 76 U/L (6-35); Albumin Level 4.5 g/dL (3.5-5.1); Alkaline Phosphatase 93 U/L (38-126); Anion Gap 10 mmol/L (4-12); Aspartate Amino Transferase 40 U/L (14-36); Bilirubin,Total 0.5 mg/dL (0.2-1.3); Blood Urea Nitrogen 10 mg/dL (7-17); Calcium 9.3 mg/dL (8.4-10.2); Carbon Dioxide 25 mmol/L (22-30); Chloride 104 mmol/L (98-107); Estimated CRCL calculation 59 ml/min; Estimated Glomerular Filt Rate > 60; Glucose 89 mg/dL (65-110); Magnesium 1.8 mg/dL (1.6-2.3); Potassium 3.8 mmol/L (3.4-5.0); Sodium 139 mmol/L (137-145); Total Protein 7.4 g/dL (6.3-8.2)
[2024-12-04 16:35] LABS: Estimated CRCL calculation 53 ml/min; Estimated Glomerular Filt Rate > 60
[2024-12-04 17:12] VITALS: BP 134/76; PULSE 84; RESP 16; O2SAT 99
== END 2024-12-04 17:14 | disposition home or self-care (01) ==
PROVIDERS: Emergency Provider Physician Assistant; PCP Internal Medicine
DX: R19.7 Diarrhea, unspecified (principal); R11.0 Nausea
CPT/HCPCS: 36415; 74177; 80053; 83605; 83735; 85025; 87040; 96361; 96374; 99284; J2405; J7030; Q9967